=== PATIENT | female | born 1995 | race Caucasian/White ===

== ENCOUNTER 2016-12-07 16:20 | Emergency (ER) | payer MEDICAID ==
--- NOTE | 2016-12-07 16:37 | ER Document Report ---
ED Medical Screen (RME) - General Stated Complaint: LOWER ABDOMINAL PAIN Notes: Lower abdominal pain states that she took a test in late August which was positive is not had any follow-up I greeted and performed a rapid initial assessment of this patient. Comprehensive ED assessment and evaluation of the patient, analysis of test results and completion of the medical decision making process will be conducted by additional ED providers. TRAVEL OUTSIDE OF THE [place] IN LAST 30 DAYS: No - Related Data Allergies/Adverse Reactions: quetiapine fumarate [From Seroquel] Allergy (Intermediate, Verified 04/23/16 23: 11) Nausea STRAWBERRIES Allergy (Mild, Uncoded 04/23/16 23:11) Rash Past Medical History Musculoskeltal Medical History: Reports Hx Arthritis Psychiatric Medical History: Reports: Hx Bipolar Disorder, Hx Depression - Immunizations Immunizations up to date: Yes Hx Diphtheria, Pertussis, Tetanus Vaccination: Yes
--- NOTE | 2016-12-07 17:44 | ER Document Report ---
HPI - HPI Patient complains to provider of: abdominal cramping Pain Level: 3 Context: Patient is a 21-year-old female presents emergency Department complaining of new onset lower abdominal cramping and pain that started 2 days ago. Patient states that this pain was sudden onset has been intermittent. She states that she'll have episodes last less than 30 seconds of a cramping abdominal pain and at its worse as a sharp stabbing pain that takes her breath away. Located in the suprapubic area She also admits to vomiting today that is more frequent than for her . She denies any hematochezia or hematemesis. She denies any vaginal bleeding, spotting, discharge with odor, pyuria, urinary retention, urgency. She states that she has not followed up with an FARM EQUIPMENT SERVICE TECHNICIAN since she is not allowed to go to [facility] in [facility] and she has not been to the health department. Past medical history significant for bipolar, depression, anxiety Past surgical history denies Social history smokes half a pack to a pack a day. Approximately 3-5 pack years. Denies any alcohol or drug use. - REPRODUCTIVE Reproductive: DENIES: : - DERM Skin Color: Normal Past Medical History - General Information source: Patient - Social History Smoking Status: Current Every Day Smoker Chew tobacco use (# tins/day): No Frequency of alcohol use: None Drug Abuse: None Family History: Reviewed & Not Pertinent Patient has suicidal ideation: No Patient has homicidal ideation: No Renal/ Medical History: Denies: Hx Peritoneal Dialysis Musculoskeltal Medical History: Reports Hx Arthritis Psychiatric Medical History: Reports: Hx Bipolar Disorder, Hx Depression - Immunizations Immunizations up to date: Yes Hx Diphtheria, Pertussis, Tetanus Vaccination: Yes Vertical Provider Document - CONSTITUTIONAL Agree With Documented VS: Yes Exam Limitations: No Limitations General Appearance: WD/WN, No Apparent Distress - Tearful - INFECTION CONTROL TRAVEL OUTSIDE OF THE [place] IN LAST 30 DAYS: No - RESPIRATORY Respiratory: Breath Sounds Normal, No Respiratory Distress - CARDIOVASCULAR Cardiovascular: Regular Rate, Regular Rhythm, No Murmur Pulses: Normal: Radial, Dorsalis pedis - GI/ABDOMEN Gastrointestinal: Abdomen Soft, Abdomen Non-Tender, No Organomegaly, Normal Bowel Sounds. negative: Abdominal Guarding, Abdominal Rebound - BACK Back: Normal Inspection. negative: CVA Tenderness-Right, CVA Tenderness-Left - MUSCULOSKELETAL/EXTREMETIES Musculoskeletal/Extremeties: MAEW, FROM, Non-Tender, No Edema - NEURO Level of Consciousness: Awake, Alert, Appropriate Motor/Sensory: No Motor Deficit, No Sensory Deficit - DERM Integumentary: Warm, Dry, No Rash Course - Re-evaluation Re-evalutation: 12/07/16 17:44 Baseline labs and studies transvaginal ultrasound be performed. 12/07/16 20:00 No evidence of any pelvic abnormality, Living IUP at 16 wks 3 days with HR of 158bpm. UA reveals UTI, d/c with ABX and f/u with health dept for care - Laboratory Result Diagrams: 12/07/16 17:35 12/07/16 17:35 - Diagnostic Test Radiology reviewed: Reports reviewed Discharge - Discharge Clinical Impression: UTI (urinary tract infection) Qualifiers: Urinary tract infection type: acute cystitis Hematuria presence: without hematuria Qualified Code(s): N30.00 - Acute cystitis without hematuria Condition: Good Disposition: HOME, SELF-CARE Instructions: Urinary Tract Infection ([facility]), Nitrofurantoin ([facility]) Additional Instructions: Please be sure to follow up with Health Department for care Prescriptions: Nitrofurantoin/Nitrofuran Mac [Macrobid 100 mg Capsule] 1 tab PO BID #20 capsule
[2016-12-07 18:11] LABS: ABSOLUTE EOSINOPHILS # (AUTO) 0.4 10^3/uL (0.0-0.6); ABSOLUTE LYMPHOCYTES (AUTO) 2.3 10^3/uL (0.5-4.7); ABSOLUTE MONOCYTES (AUTO) 0.7 10^3/uL (0.1-1.4); ABSOLUTE NEUT (AUTO) 8.4 10^3/uL (1.7-8.2); BASOPHILS % (AUTO) 0.3 % (0-2); EOSINOPHILS % (AUTO) 3.2 % (0-6); HEMOGLOBIN 11.3 g/dL (12.0-15.5); HGB HCT DIFFERENCE -0.1; LYMPHOCYTES % (AUTO) 19.3 % (13-45); MEAN CORPUSCULAR HEMOGLOBIN 28.8 pg (27.0-33.4); MEAN CORPUSCULAR HGB CONC 33.3 g/dL (32.0-36.0); MEAN CORPUSCULAR VOLUME 87 fl (80-97); MONOCYTES % (AUTO) 5.6 % (3-13); RED BLOOD COUNT 3.92 10^6/uL (3.72-5.28); RED CELL DISTRIBUTION WIDTH 16.1 % (11.5-14.0); SEGMENTED NEUTROPHILS % (AUTO) 71.6 % (42-78); WHITE BLOOD COUNT 11.7 10^3/uL (4.0-10.5)
[2016-12-07 18:12] LABS: AMORPHOUS SEDIMENT,URINE TRACE /HPF; APPEARANCE,URINE TURBID; BILIRUBIN,URINE NEGATIVE (NEGATIVE); GLUCOSE, URINE NEGATIVE (NEGATIVE); KETONES,URINE 20 mg/dL (NEGATIVE); LEUKOCYTE ESTERASE,URINE TRACE (NEGATIVE); NITRITE,URINE NEGATIVE (NEGATIVE); PROTEIN,URINE NEGATIVE (NEGATIVE); URINE SPECIFIC GRAVITY 1.023
[2016-12-07 18:24] LABS: URINE BARBITURATES SCREEN NEGATIVE; URINE METHADONE SCREEN NEGATIVE; URINE PHENCYCLIDINE SCREEN NEGATIVE
[2016-12-07 18:29] LABS: BLOOD UREA NITROGEN 11 mg/dL (7-20); CALCIUM 8.8 mg/dL (8.4-10.2); CARBON DIOXIDE 24 mmol/L (22-30); CHLORIDE 106 mmol/L (98-107); CREATININE RESULT 0.61 mg/dL (0.52-1.25); GLUCOSE 78 mg/dL (75-110); POTASSIUM 3.6 mmol/L (3.6-5.0); SODIUM 138.9 mmol/L (137-145)
[2016-12-07 18:30] LABS: ALANINE AMINOTRANSFERASE 10 U/L (9-52); ALBUMIN 3.4 g/dL (3.5-5.0); ALKALINE PHOSPHATASE 56 U/L (38-126); ANION GAP 9 (5-19); ASPARTATE AMINO TRANSFERASE 12 U/L (14-36); BILIRUBIN,TOTAL 0.2 mg/dL (0.2-1.3)
[2016-12-07] MEDS ORDERED: NITROFURANTOIN MONOHYD/M-CRYST 100 MG CAPSULE PO ONE (19:57)
== END 2016-12-07 19:55 | disposition home or self-care (01) ==
LOC: ER 16:20
DX: O23.12 Infections of bladder in pregnancy, second trimester (principal); N30.00 Acute cystitis without hematuria; O99.332 Smoking (tobacco) complicating pregnancy, second trimester; F17.210 Nicotine dependence, cigarettes, uncomplicated; Z3A.16 16 weeks gestation of pregnancy
CPT/HCPCS: 36415; 76805; 80053; 80307; 81001; 83690; 84702; 85025; 87086; 93976; 99284

== ENCOUNTER 2017-02-24 09:17 | Outpatient (CLI) | payer MEDICAID ==
[2017-02-24 10:06] LABS: AMORPHOUS SEDIMENT,URINE TRACE /HPF; APPEARANCE,URINE CLOUDY; BILIRUBIN,URINE NEGATIVE (NEGATIVE); GLUCOSE, URINE NEGATIVE (NEGATIVE); KETONES,URINE 80 mg/dL (NEGATIVE); LEUKOCYTE ESTERASE,URINE TRACE (NEGATIVE); NITRITE,URINE NEGATIVE (NEGATIVE); PROTEIN,URINE NEGATIVE (NEGATIVE); URINE SPECIFIC GRAVITY 1.016; UROBILINOGEN,URINE NEGATIVE mg/dL (<2.0)
[2017-02-24 10:15] LABS: URINE BARBITURATES SCREEN NEGATIVE; URINE METHADONE SCREEN NEGATIVE; URINE OPIATES LOW NEGATIVE; URINE PHENCYCLIDINE SCREEN NEGATIVE
[2017-02-24 11:47] LABS: ABSOLUTE EOSINOPHILS # (AUTO) 0.1 10^3/uL (0.0-0.6); ABSOLUTE LYMPHOCYTES (AUTO) 1.2 10^3/uL (0.5-4.7); ABSOLUTE MONOCYTES (AUTO) 0.6 10^3/uL (0.1-1.4); ABSOLUTE NEUT (AUTO) 4.9 10^3/uL (1.7-8.2); BASOPHILS % (AUTO) 0.5 % (0-2); EOSINOPHILS % (AUTO) 1.5 % (0-6); HEMATOCRIT 30.1 % (36.0-47.0); HEMOGLOBIN 10.3 g/dL (12.0-15.5); HGB HCT DIFFERENCE 0.8; LYMPHOCYTES % (AUTO) 17.2 % (13-45); MEAN CORPUSCULAR HEMOGLOBIN 30.8 pg (27.0-33.4); MEAN CORPUSCULAR HGB CONC 34.1 g/dL (32.0-36.0); MEAN CORPUSCULAR VOLUME 90 fl (80-97); RED BLOOD COUNT 3.33 10^6/uL (3.72-5.28); RED CELL DISTRIBUTION WIDTH 14.4 % (11.5-14.0); SEGMENTED NEUTROPHILS % (AUTO) 71.8 % (42-78); WHITE BLOOD COUNT 6.8 10^3/uL (4.0-10.5)
[2017-02-24 12:04] LABS: ALANINE AMINOTRANSFERASE 28 U/L (9-52); ALBUMIN 3.6 g/dL (3.5-5.0); ALKALINE PHOSPHATASE 105 U/L (38-126); ANION GAP 9 (5-19); ASPARTATE AMINO TRANSFERASE 21 U/L (14-36); BILIRUBIN,DIRECT 0.1 mg/dL (0.0-0.4); BILIRUBIN,TOTAL 0.3 mg/dL (0.2-1.3); BLOOD UREA NITROGEN 8 mg/dL (7-20); CALCIUM 9.2 mg/dL (8.4-10.2); CARBON DIOXIDE 20 mmol/L (22-30); CHLORIDE 107 mmol/L (98-107); GLUCOSE 69 mg/dL (75-110); POTASSIUM 4.2 mmol/L (3.6-5.0); SODIUM 135.6 mmol/L (137-145); TOTAL PROTEIN 5.9 g/dL (6.3-8.2)
[2017-02-24 12:05] LABS: AMYLASE < 30 U/L (30-110)
== END 2017-02-24 13:18 | disposition home or self-care (01) ==
LOC: LC 09:17
PROVIDERS: ATTEND Student in an Organized Health Care Education/Training Program
PROC: 4A1HXCZ Monitoring of Products of Conception, Cardiac Rate, External Approach (ICD-10-PCS; principal; 2017-02-24)
DX: O26.893 Other specified pregnancy related conditions, third trimester (principal); R10.2 Pelvic and perineal pain; Z3A.28 28 weeks gestation of pregnancy
CPT/HCPCS: 36415; 76815; 80053; 80307; 81001; 82150; 82731; 85025; 87086

== ENCOUNTER 2017-05-04 01:17 | Outpatient (CLI) | payer MEDICAID ==
[2017-05-04 02:23] LABS: APPEARANCE,URINE SLIGHTLY-CLOUDY; BILIRUBIN,URINE NEGATIVE (NEGATIVE); GLUCOSE, URINE NEGATIVE (NEGATIVE); KETONES,URINE TRACE mg/dL (NEGATIVE); LEUKOCYTE ESTERASE,URINE TRACE (NEGATIVE); NITRITE,URINE NEGATIVE (NEGATIVE); PROTEIN,URINE NEGATIVE (NEGATIVE); UROBILINOGEN,URINE NEGATIVE mg/dL (<2.0)
[2017-05-04 02:55] LABS: URINE BARBITURATES SCREEN NEGATIVE; URINE METHADONE SCREEN NEGATIVE; URINE OPIATES LOW NEGATIVE; URINE PHENCYCLIDINE SCREEN NEGATIVE
[2017-05-04 03:33] LABS: ABSOLUTE BASOPHILS # (AUTO) 0.1 10^3/uL (0.0-0.2); ABSOLUTE EOSINOPHILS # (AUTO) 0.6 10^3/uL (0.0-0.6); ABSOLUTE LYMPHOCYTES (AUTO) 4.4 10^3/uL (0.5-4.7); ABSOLUTE MONOCYTES (AUTO) 1.4 10^3/uL (0.1-1.4); ABSOLUTE NEUT (AUTO) 11.8 10^3/uL (1.7-8.2); BASOPHILS % (AUTO) 0.5 % (0-2); HEMATOCRIT 29.4 % (36.0-47.0); HEMOGLOBIN 9.8 g/dL (12.0-15.5); LYMPHOCYTES % (AUTO) 24.2 % (13-45); MEAN CORPUSCULAR HEMOGLOBIN 29.4 pg (27.0-33.4); MEAN CORPUSCULAR HGB CONC 33.4 g/dL (32.0-36.0); MEAN CORPUSCULAR VOLUME 88 fl (80-97); MONOCYTES % (AUTO) 7.7 % (3-13); RED BLOOD COUNT 3.34 10^6/uL (3.72-5.28); RED CELL DISTRIBUTION WIDTH 14.3 % (11.5-14.0); SEGMENTED NEUTROPHILS % (AUTO) 64.6 % (42-78); WHITE BLOOD COUNT 18.3 10^3/uL (4.0-10.5)
[2017-05-04] MEDS ORDERED: HYDROXYZINE PAMOATE 50 MG CAPSULE PO ONE (04:46)
[2017-05-04] MEDS ORDERED: HYDROXYZINE PAMOATE 50 MG CAPSULE ONE (04:51)
--- NOTE | 2017-05-04 05:04 | Non Stress Test Report ---
Non Stress Test Datetime Report Generated by CPN: 05/04/2017 05:04 DEMOGRAPHIC EGA NST: 37.4 INDICATION Indication for Study: Other VITAL SIGNS Temperature - NST: 98.0 Pulse - NST: 86 RESP - NST: 14 NBPSYS NST: 102 NBPDIA NST: 53 MONITORING Monitor Explained: Monitor Explained; Test Explained; Patient Verbalized Understanding Time on Monitor: 05/04/2017 01:33 Time off Monitor: 05/04/2017 04:55 NST Duration: 202 NST INTERVENTIONS NST Interventions: PO Hydration Physician Notified NST: Dr Correia BABY A: [id number] BABY A Movement : Present Contraction Frequency : 2.5-5.5 FHR Baseline : 135 Accelerations : 15X15 Decelerations : None Variability : Moderate 6-25bpm NST Review: Meets Criteria for Reactive NST NST Review and Verified By : NARENDRA MASTERS Results: Reactive NST REPORT Report Trigger: Send Report
[2017-05-04 07:01] LABS: ADD HIVPANEL? NO; HIV (1 AND 2) ANTIBODY NEGATIVE (NEGATIVE)
[2017-05-05 16:39] LABS: HEPATITIS C VIRUS AB <0.1 s/co ratio (0.0-0.9)
== END 2017-05-04 05:06 | disposition home or self-care (01) ==
LOC: LC 01:17
PROVIDERS: ATTEND Obstetrics & Gynecology
PROC: 4A1HXCZ Monitoring of Products of Conception, Cardiac Rate, External Approach (ICD-10-PCS; principal; 2017-05-04)
DX: O47.1 False labor at or after 37 completed weeks of gestation (principal); Z3A.37 37 weeks gestation of pregnancy
CPT/HCPCS: 59025; 86900; 86901; 36415; 86850; 85025; 81005; 86762; 86592; 87340; 86701; 80307; 86803; 86804; J3490

== ENCOUNTER 2017-05-05 23:59 | Outpatient (CLI) | payer MEDICAID ==
[2017-05-06] MEDS ORDERED: PENICILLIN G-K 5 MILLION UNIT VIAL IV ONE (00:36)
[2017-05-06 00:38] LABS: APPEARANCE,URINE CLOUDY; BILIRUBIN,URINE NEGATIVE (NEGATIVE); GLUCOSE, URINE NEGATIVE (NEGATIVE); KETONES,URINE TRACE mg/dL (NEGATIVE); LEUKOCYTE ESTERASE,URINE TRACE (NEGATIVE); NITRITE,URINE NEGATIVE (NEGATIVE); PROTEIN,URINE 30 mg/dL (NEGATIVE); URINE SPECIFIC GRAVITY 1.023; UROBILINOGEN,URINE NEGATIVE mg/dL (<2.0)
[2017-05-06] MEDS ORDERED: RINGERS SOLUTION,LACTATED 1,000 ML IV PRN (00:38)
[2017-05-06] MEDS ORDERED: PENICILLIN G-K 5 MILLION UNIT VIAL ONE (00:42)
[2017-05-06 00:58] LABS: URINE BARBITURATES SCREEN NEGATIVE; URINE METHADONE SCREEN NEGATIVE; URINE OPIATES LOW NEGATIVE; URINE PHENCYCLIDINE SCREEN NEGATIVE
[2017-05-06 02:58] LABS: CHLAM PCR NOT DETECTED (NOT DETECT)
--- NOTE | 2017-05-15 01:12 | Non Stress Test Report ---
Non Stress Test Datetime Report Generated by CPN: 05/15/2017 01:12 DEMOGRAPHIC Test Number: 1 EGA NST: 37.6 INDICATION Indication for Study: Ordered by Provider MONITORING Monitor Explained: Monitor Explained; Test Explained; Patient Verbalized Understanding Time on Monitor: 05/06/2017 00:15 Time off Monitor: 05/06/2017 05:18 NST Duration: 303 NST INTERVENTIONS NST Interventions: IV Fluids Physician Notified NST: Gonzalez BABY A: [id number] BABY A Movement : Present Contraction Frequency : 3-5 FHR Baseline : 130 Accelerations : 15X15 Decelerations : None Variability : Moderate 6-25bpm NST Review: Meets Criteria for Reactive NST NST Review and Verified By : Adriane Mckeon RN NSDerick Results: Reactive NST REPORT Report Trigger: Send Report
== END 2017-05-06 05:30 | disposition home or self-care (01) ==
LOC: LC 23:59
PROVIDERS: ATTEND Student in an Organized Health Care Education/Training Program
PROC: 4A1HXCZ Monitoring of Products of Conception, Cardiac Rate, External Approach (ICD-10-PCS; principal; 2017-05-05)
DX: O47.1 False labor at or after 37 completed weeks of gestation (principal); Z3A.37 37 weeks gestation of pregnancy
CPT/HCPCS: 59025; 81005; 80307; 87491; 87591; J2540

== ENCOUNTER 2017-05-15 01:12 | Inpatient (IN) | payer MEDICAID ==
[2017-05-15] MEDS ORDERED: RINGERS SOLUTION,LACTATED 1,000 ML IV PRN (01:17)
[2017-05-15] MEDS ORDERED: OXYTOCIN/NORMAL SALINE 20 UNIT/1,000 ML RTUINJ ONE ×2 (01:21→02:17)
[2017-05-15] MEDS ORDERED: LIDOCAINE 1% INJ-PF (10 MG/ML) 30 ML SDV ONE (01:21)
[2017-05-15] MEDS ORDERED: MISOPROSTOL 0.2 MG TABLET ONE (01:21)
[2017-05-15] MEDS ORDERED: PENICILLIN G-K 5 MILLION UNIT VIAL ONE (01:22)
[2017-05-15] MEDS ORDERED: PENICILLIN G-K 5 MILLION UNIT VIAL IV PRN (01:23)
[2017-05-15] MEDS ORDERED: PENICILLIN G POTASSIUM 5,000,000 UNIT in DEXTROSE 5%-WATER 100 ML IV ONE (01:30)
[2017-05-15] MEDS ORDERED: BENZOCAINE/MENTHOL AEROSOL SPRAY 56 ML TOP PRN (01:44)
[2017-05-15] MEDS ORDERED: DIBUCAINE 1% OINTMENT 28 GM TP PRN (01:44)
[2017-05-15] MEDS ORDERED: DIPH/PERTUSS(ACELL)/TETANUS VAC/PF 0.5 ML SYR (>=10YO) IM PRN (01:44)
[2017-05-15] MEDS ORDERED: ACETAMINOPHEN WITH CODEINE #3 TABLET PO PRN (01:44)
[2017-05-15] MEDS ORDERED: OXYTOCIN/NORMAL SALINE 1,000 ML IV PRN (01:44)
[2017-05-15] MEDS ORDERED: ZOLPIDEM TARTRATE 5 MG TABLET PO PRN (01:44)
[2017-05-15] MEDS ORDERED: MEASLES,MUMPS&RUBELLA VACC/PF 0.5 ML VIAL SUBCUT PRN (01:44)
[2017-05-15 02:04] LABS: ABSOLUTE BASOPHILS # (AUTO) 0.1 10^3/uL (0.0-0.2); ABSOLUTE EOSINOPHILS # (AUTO) 0.4 10^3/uL (0.0-0.6); ABSOLUTE LYMPHOCYTES (AUTO) 4.6 10^3/uL (0.5-4.7); ABSOLUTE MONOCYTES (AUTO) 1.2 10^3/uL (0.1-1.4); ABSOLUTE NEUT (AUTO) 10.1 10^3/uL (1.7-8.2); BASOPHILS % (AUTO) 0.3 % (0-2); EOSINOPHILS % (AUTO) 2.6 % (0-6); HEMATOCRIT 30.9 % (36.0-47.0); HEMOGLOBIN 10.2 g/dL (12.0-15.5); HGB HCT DIFFERENCE -0.3; MEAN CORPUSCULAR HEMOGLOBIN 28.9 pg (27.0-33.4); MEAN CORPUSCULAR VOLUME 88 fl (80-97); MONOCYTES % (AUTO) 7.4 % (3-13); RED BLOOD COUNT 3.53 10^6/uL (3.72-5.28); RED CELL DISTRIBUTION WIDTH 14.2 % (11.5-14.0); SEGMENTED NEUTROPHILS % (AUTO) 61.7 % (42-78); WHITE BLOOD COUNT 16.3 10^3/uL (4.0-10.5)
[2017-05-15] MEDS ORDERED: IBUPROFEN 800 MG TABLET ONE (02:06)
[2017-05-15] MEDS ORDERED: ACETAMINOPHEN WITH CODEINE #3 TABLET ONE (02:06)
--- NOTE | 2017-05-15 03:28 | Delivery Summary ---
Del Sum A-C Datetime Report Generated by CPN: 05/15/2017 03:27 DELIVERY PERSONNEL DELIVERY PERSONNEL: [phone] Delivery Doctor:: Nia Miller MD Labor and Delivery Nurse:: Rosemary Scott RNsteam train driver Nurse:: Shaye Kan RN Hairspring Studder/ENGRAVING SUPERVISOR: Sobia Chávez, ST MATERNAL INFORMATION Delivery Anesthesia: None Medications After Delivery: Pitocin Drip 20 Units/1000ml NSS Estimated Blood Loss (ml): 150 Maternal Complications: Precipitous Labor (<3hrs) LABOR SUMMARY EDC: 05/21/2017 00:00 No. Babies in Womb: 1 Attempted: No Labor Anesthesia: None LABOR INFORMATION Reason for Induction: Not Applicable Onset of Labor: 05/15/2017 00:30 Complete Dilatation: 05/15/2017 01:26 Oxytocin: N/A Group B Beta Strep: Unknown Antibiotics # of Doses: 1 Antibiotics Time of Last Dose: penicillin Name of Antibiotic Given: 0124 MEMBRANES Rupture of Membranes: 05/15/2017 00:30 Length of Rupture (hr): 1.00 Amniotic Fluid Color: Clear Amniotic Fluid Amount: Large STAGES OF LABOR Stage 1 hr: 0 Stage 1 min: 56 Stage 2 hr: 0 Stage 2 min: 4 Stage 3 hr: 0 Stage 3 min: 3 Total Time in Labor hr: 1 Total Time in Labor min: 3 VAGINAL DELIVERY Episiotomy: None Laceration Extension: N/A Laceration Type: None Laceration Repair: Not Applicable Sponge Count Correct: N/A Sharps Count Correct: Yes CSECTION DELIVERY Primary Indication: N/A Secondary Indication: N/A CSection Incidence: N/A Labor: N/A Elective: N/A CSection Incision: N/A BABY A INFORMATION Infant Delivery Date/Time: 05/15/2017 01:30 Method of Delivery: Vaginal Born in Route : No : N/A Forceps: N/A Vacuum Extraction: N/A Shoulder Dystocia : No PRESENTATION/POSITION BABY A Presentation: Cephalic Cephalic Presentation: Vertex Vertex Position: Occipital Anterior Breech Presentation: N/A PLACENTA INFORMATION BABY A Placenta Delivery Time : 05/15/2017 01:33 Placenta Method of Delivery: Spontaneous Placenta Status: Delivered SCORES BABY A Heart Rate 1 min: >100 bpm Resp Effort 1 min: Good Cry Reflex Irritability 1 min: Cough or Sneeze or Pulls Away Muscle Tone 1 min: Active Motion Color 1 min: Body [place], Extremities Blue Resuscitation Effort 1 min: N/A SCORE 1 MIN: 9 Heart Rate 5 min: >100 bpm Resp Effort 5 min: Good Cry Reflex Irritability 5 min: Cough or Sneeze or Pulls Away Muscle Tone 5 min: Active Motion Color 5 min: Body [place], Extremities Blue Resuscitation Effort 5 min: N/A SCORE 5 MIN: 9 INFANT INFORMATION BABY A Gestational Age at Delivery: 39.1 Gestational Status: Full Term- 39- 40.6 Weeks Outcome : Liveborn Infant Condition : Stable Sex: Male IDENTIFICATION BABY A Verification Date/Time: 05/15/2017 01:37 ID Band Number: [id number] Mother's Name Verified: Yes Infant RN Verifying : R Elmer, RNC Additional Verifying Personnel: O [facility], RN WEIGHT/LENGTH BABY A Birthweight (gm): 3280 Infant Weight (lb): 7 Weight (oz): 4 Length (in): 20.00 Infant Length (cm): 50.80 CORD INFORMATION BABY A No. Cord Vessels: 3 Nuchal Cord : N/A Cord Blood Taken: Yes-For Eval (Mom's Blood Type - or O+) Suction: Mouth; Nose ASSESSMENT BABY A Infant Complications: None Physical Findings at Delivery: Within Normal Limits Infant Respirations: Appears Normal Skin to Skin: Yes Skin to Skin Time (min): 15 Rn Lab/ALS Called : No Care By: K Tyler RN Transferred To: Remains with Mother BABY B INFORMATION : N/A SIGNATURES Signature: with User ID: [email or web address]
--- NOTE | 2017-05-15 03:41 | Admission Physical ---
Datetime Report Generated by CPN: 05/15/2017 03:41 CURRENT ADMISSION Chief Complaint: Uterine Contractions; Suspected Ruptured Membranes Indication for Induction: Not Applicable Admit Plan: Admit to Unit; Initiate Labor Protocol ALLERGIES Medication Allergies: Yes Medication Allergies: quetiapine fumarate/MO/Nausea (05/15/2017) Medication Allergies: quetiapine fumarate/MO/Nausea (12/07/2016) Medication Allergies: quetiapine fumarate/MO/Nausea (04/23/2016) Latex: No Latex Allergies Food Allergies: STRAWBERRIES Environmental Allergies: NONE OBSTETRICAL HISTORY EDC: 05/21/2017 00:00 : 4 Para: 3 Term: 3 : 0 SAB: 0 IAB: 0 Ectopic: 0 Livin Cesareans: 0 VBACs: 0 Multiple Births: 0 Gestational Diabetes: No Rh Sensitization: No Incompetent Cervix: No BRIDGETTE: No Infertility: No ART Treatment: No Uterine Anomaly: No IUGR: No Hx Previous C/S: No Macrosomia: No Hx Loss/Stillborn: No PIH: No Hx : No Placenta Previa/Abruption: No Depression/PP Depression: No PTL/PROM: No Post Hemorrhage: No Current Procedures: Ultrasound Obstetrical History Comments: 2012 baby boy 37 weeks 2014 baby girl 37 weeks 2015 baby girl 38 weeks 2016 current SEE RECORDS Alcohol: No Marijuana : No Cocaine: No Other Illicit Drugs: No Cigarettes: Current Everyday Smoker. [id number] Cigarette Frequency: 5 - 10 per day Advised to Stop: Yes MEDICAL HISTORY Diabetes: No Blood Transfusion: No Pulmonary Disease (Asthma, TB): No Breast Disease: No Hypertension: No Industrial Controller Surgery: No Heart Disease: No Hosp/Surgery: No Autoimmune Disorder: No Anesthetic Complications: No Kidney Disease: No Abnormal Pap Smear: No Neuro/Epilepsy: No Psychiatric Disorders: Yes Other Medical Diseases: No Hepatitis/Liver Disease: No Significant Family History: No Varicosities/Phlebitis: No Trauma/Violence : No Thyroid Dysfunction: No Medical History Comments: bipolar disorder, depression, kids currently in [facility] care per records, history of IVC in April 2016 INFECTIOUS HISTORY Gonorrhea: No Genital Herpes: No Chlamydia: Yes Tuberculosis: No Syphilis: No Hepatitis: No HIV/AIDS Exposure: No Rash or Viral Illness: No HPV: No Infectious History Comments: Chlamydia 2011 PHYSICAL EXAM General: Normal HEENT: Normal Neurologic: Normal Thyroid: Normal Heart: Normal Lungs: Normal Breast: Normal Back: Normal Abdomen: Normal Genitourinary Exam: Normal Extremities: Normal DTRs: Normal Pelvic Type: Adequate Vital Signs: Reviewed VAGINAL EXAM Dilatation: 7 Effacement: 100 Station: 0 MEMBRANES Pooling: Positive Membranes: Ruptured Amniotic Fluid Color: Clear FETUS A EGA: 39.1 Monitoring: External US FHR- Baseline: 140 Variability: Moderate 6-25bpm Accelerations: 10X10 Decelerations: None Estimated Weight (gm): 3300 Presentation: Vertex PLANS FOR LABOR AND DELIVERY Labor and Delivery: None Pain Management: Epidural Feeding Preference: Both Benefit of Breast Feed Discussed: Yes Circumcision: Yes INFORMED CONSENT Signature: with User ID: [email or web address]
[2017-05-15] MEDS ORDERED: PENICILLIN G POTASSIUM 2,500,000 UNIT in DEXTROSE 5%-WATER 50 ML IV SCH (05:30)
[2017-05-15] MEDS: IBUPROFEN 800 MG TABLET PO SCH ×3 (06:02→21:27)
[2017-05-15 09:12] LABS: APPEARANCE,URINE SLIGHTLY-CLOUDY; BILIRUBIN,URINE NEGATIVE (NEGATIVE); GLUCOSE, URINE NEGATIVE (NEGATIVE); KETONES,URINE NEGATIVE (NEGATIVE); LEUKOCYTE ESTERASE,URINE SMALL (NEGATIVE); NITRITE,URINE NEGATIVE (NEGATIVE); PROTEIN,URINE 100 mg/dL (NEGATIVE); URINE SPECIFIC GRAVITY 1.008; UROBILINOGEN,URINE NEGATIVE mg/dL (<2.0)
--- NOTE | 2017-05-15 09:28 | PDOC PROGRESS REPORT ---
Subjective-OB Subjective: Post Delivery Day: 22 year old. Denies any needs at this time. Denies suicidal ideation. States is under psychiatric care at [facility]-on no meds. Denies use of anything except cigarettes, no marijuana. Physical Exam (OB) Vital Signs: Temp Pulse Resp BP Pulse Ox 97.9 F 74 16 107/67 100 05/15/17 07:41 05/15/17 07:41 05/15/17 07:41 05/15/17 07:41 05/15/17 07:41 Intake & Output 05/14/17 05/15/17 05/16/17 06:59 06:59 06:59 Weight 57.85 kg - Lochia Lochia Amount: Small 10-25 ml Lochia Color: Rubra/Red - Abdomen Description: Tender, Soft Hernia Present: No Bowel Sounds: Normoactive Flatus Presence: Present Stool: No Fundal Description: Firm, Midline Fundal Height: u/u - u/2 Objective-Diagnostic Laboratory: 05/15/17 01:49 05/15/17 05/15/17 05/15/17 01:49 01:49 08:58 WBC 16.3 H RBC 3.53 L Hgb 10.2 L Hct 30.9 L MCV 88 MCH 28.9 MCHC 33.0 RDW 14.2 H Plt Count 339 Seg Neutrophils % 61.7 Lymphocytes % 28.0 Monocytes % 7.4 Eosinophils % 2.6 Basophils % 0.3 Absolute Neutrophils 10.1 H Absolute Lymphocytes 4.6 Absolute Monocytes 1.2 Absolute Eosinophils 0.4 Absolute Basophils 0.1 Urine Color RED Urine Appearance SLIGHTLY-CLOUDY Urine pH 6.0 Ur Specific [place] 1.008 Urine Protein 100 H Urine Glucose (UA) NEGATIVE Urine Ketones NEGATIVE Urine Blood LARGE H Urine Nitrite NEGATIVE Ur Leukocyte Esterase SMALL H Blood Type O POSITIVE Antibody Screen NEGATIVE
[2017-05-15 09:35] LABS: URINE BARBITURATES SCREEN NEGATIVE; URINE METHADONE SCREEN NEGATIVE; URINE PHENCYCLIDINE SCREEN NEGATIVE
[2017-05-15] MEDS: SENNOSIDES/DOCUSATE 8.6-50 MG 1 EACH TABLET PO SCH (09:38)
[2017-05-15] MEDS: ACETAMINOPHEN WITH CODEINE #3 TABLET PO PRN ×2 (09:38→20:47)
[2017-05-15] MEDS: FERROUS SULFATE 325 MG TABLET PO SCH ×2 (09:39→17:51)
[2017-05-15] MEDS: PRENATAL VITAMIN W-O CA NO5/FE FUMARATE/FA CAPSULE PO SCH (09:39)
[2017-05-15] MEDS: DOCUSATE SODIUM 100 MG CAPSULE PO SCH ×2 (09:39→17:52)
[2017-05-15 10:03] LABS: URINE OPIATES LOW UNCONFIRMED POSITIVE
[2017-05-16] MEDS: IBUPROFEN 800 MG TABLET PO SCH ×3 (06:15→21:32)
[2017-05-16 07:20] LABS: HEMATOCRIT 29.7 % (36.0-47.0); HEMOGLOBIN 9.8 g/dL (12.0-15.5); HGB HCT DIFFERENCE -0.3; MEAN CORPUSCULAR VOLUME 88 fl (80-97); RED BLOOD COUNT 3.37 10^6/uL (3.72-5.28); RED CELL DISTRIBUTION WIDTH 14.6 % (11.5-14.0); WHITE BLOOD COUNT 14.9 10^3/uL (4.0-10.5)
[2017-05-16] MEDS: SENNOSIDES/DOCUSATE 8.6-50 MG 1 EACH TABLET PO SCH (10:12)
[2017-05-16] MEDS: PRENATAL VITAMIN W-O CA NO5/FE FUMARATE/FA CAPSULE PO SCH (10:12)
[2017-05-16] MEDS: DOCUSATE SODIUM 100 MG CAPSULE PO SCH ×2 (10:12→17:52)
[2017-05-16] MEDS: FERROUS SULFATE 325 MG TABLET PO SCH ×2 (10:12→17:52)
[2017-05-16] MEDS: ACETAMINOPHEN WITH CODEINE #3 TABLET PO PRN (10:22)
--- NOTE | 2017-05-16 10:22 | PDOC PROGRESS REPORT ---
Subjective-OB Subjective: Post Delivery Day:1 22 year old. Denies any needs at this time, states lochia is stable, pain is well controlled, voiding without difficulty Physical Exam (OB) Vital Signs: Temp Pulse Resp BP Pulse Ox 97.6 F 68 16 104/59 L 100 05/16/17 08:56 05/16/17 08:56 05/16/17 08:56 05/16/17 08:56 05/16/17 08:56 Intake & Output 05/15/17 05/16/17 05/17/17 06:59 06:59 06:59 Weight 57.85 kg - Lochia Lochia Amount: Scant < 10 ml Lochia Color: Rubra/Red - Abdomen Description: Tender, Soft Hernia Present: No Fundal Description: Firm, Midline Fundal Height: u/u - u/2 Objective-Diagnostic Laboratory: 05/16/17 07:12 05/16/17 07:12 WBC 14.9 H RBC 3.37 L Hgb 9.8 L Hct 29.7 L MCV 88 MCH 29.0 MCHC 33.0 RDW 14.6 H Plt Count 336
[2017-05-16 21:41] VITALS: BP 100/52
[2017-05-17] MEDS: ACETAMINOPHEN WITH CODEINE #3 TABLET PO PRN (02:09)
[2017-05-17] MEDS: IBUPROFEN 800 MG TABLET PO SCH (05:44)
[2017-05-17] MEDS: DOCUSATE SODIUM 100 MG CAPSULE PO SCH (09:10)
[2017-05-17] MEDS: PRENATAL VITAMIN W-O CA NO5/FE FUMARATE/FA CAPSULE PO SCH (09:10)
[2017-05-17] MEDS: FERROUS SULFATE 325 MG TABLET PO SCH (09:11)
[2017-05-17] MEDS: SENNOSIDES/DOCUSATE 8.6-50 MG 1 EACH TABLET PO SCH (09:11)
--- NOTE | 2017-05-17 09:32 | PDOC DISCHARGE SUMMARY ---
Final Diagnosis Discharge Date: 05/17/17 - Final Diagnosis (1) Bipolar 1 disorder, depressed Is this a current diagnosis for this admission?: Yes (2) Delivery normal Is this a current diagnosis for this admission?: Yes (3) Marijuana abuse Is this a current diagnosis for this admission?: Yes (4) Vaginal delivery Is this a current diagnosis for this admission?: Yes Discharge Data - Discharge Medication Home Medications: Vit/Iron Fumarate/FA [ Tablet] 1 tab PO DAILY 02/24/17 Docusate Sodium [Colace 100 mg Capsule] 100 mg PO BID #60 capsule 05/17/17 Ferrous Sulfate [Feosol 325 mg Tablet] 325 mg PO BID #60 tablet 05/17/17 Ibuprofen [Motrin 800 mg Tablet] 800 mg PO Q8 #60 tablet 05/17/17 Gestational Age: 39.1 Reason(s) for Admission: Onset of Labor Procedures: NST Intrapartum Procedure(s): Spontaneous Vaginal Delivery - [place] Data Baby 1 Female at 1 minute: 9 at 5 minutes: 9 Weight: 3280 kg Home with Mother: No - infant removed for foster care Complications: No - Diagnosis Test Laboratory: Temp Pulse Resp BP Pulse Ox 98.2 F 70 18 100/52 L 98 05/16/17 19:30 05/16/17 19:30 05/16/17 19:30 05/16/17 19:30 05/16/17 19:30 05/15/17 05/15/17 05/16/17 01:49 08:58 07:12 RBC 3.53 L 3.37 L Hgb 10.2 L 9.8 L Hct 30.9 L 29.7 L Urine Opiates Screen UNCONFIRMED POSITIVE - Discharge information/Instructions Discharge Activity: Activity As Tolerated, Pelvic Rest, No tub bath Discharge Diet: Regular Disposition: HOME, SELF-CARE Follow [facility] in: 4, Weeks - follow up with [facility] in 4 weeks NOT [facility], keep psych appt for friday with dr. oliver
== END 2017-05-17 11:30 | disposition home or self-care (01) | DRG 775 ==
LOC: LC 01:12 → LR 01:17 → 2S 03:40
PROVIDERS: ADMIT Obstetrics & Gynecology; ATTEND Obstetrics & Gynecology
PROC: 10E0XZZ Delivery of Products of Conception, External Approach (ICD-10-PCS; principal; 2017-05-15)
PROC: 4A1HXCZ Monitoring of Products of Conception, Cardiac Rate, External Approach (ICD-10-PCS; 2017-05-15)
DX: O62.3 Precipitate labor (principal); O99.344 Other mental disorders complicating childbirth; F31.9 Bipolar disorder, unspecified; O99.334 Smoking (tobacco) complicating childbirth; F17.210 Nicotine dependence, cigarettes, uncomplicated; Z37.0 Single live birth; Z3A.39 39 weeks gestation of pregnancy
CPT/HCPCS: 36415; 80307; 81005; 85025; 85027; 86592; 86850; 86900; 86901; J2540; J2590; J3490

== ENCOUNTER 2018-05-26 12:12 | Observation (INO) | payer MEDICAID ==
[2018-05-26] MEDS ORDERED: PENICILLIN G POTASSIUM 5,000,000 UNIT in DEXTROSE 5%-WATER 100 ML IV ONE (13:07)
[2018-05-26] MEDS ORDERED: MISOPROSTOL 0.2 MG TABLET ONE (13:10)
[2018-05-26] MEDS ORDERED: PENICILLIN G-K 5 MILLION UNIT VIAL ONE ×2 (13:10→18:40)
[2018-05-26] MEDS ORDERED: OXYTOCIN/NORMAL SALINE 0 UNIT/0 ML RTUINJ ONE (13:10)
[2018-05-26] MEDS ORDERED: LIDOCAINE 1% INJ-PF (10 MG/ML) 30 ML SDV ONE (13:10)
[2018-05-26 13:49] LABS: APPEARANCE,URINE CLEAR; BILIRUBIN,URINE NEGATIVE (NEGATIVE); COLOR,URINE STRAW; GLUCOSE, URINE NEGATIVE (NEGATIVE); KETONES,URINE 80 mg/dL (NEGATIVE); LEUKOCYTE ESTERASE,URINE NEGATIVE (NEGATIVE); NITRITE,URINE NEGATIVE (NEGATIVE); PROTEIN,URINE NEGATIVE (NEGATIVE); URINE SPECIFIC GRAVITY 1.006; UROBILINOGEN,URINE NEGATIVE mg/dL (<2.0)
[2018-05-26 13:57] LABS: ABSOLUTE BASOPHILS # (AUTO) 0.1 10^3/uL (0.0-0.2); ABSOLUTE EOSINOPHILS # (AUTO) 0.2 10^3/uL (0.0-0.6); ABSOLUTE LYMPHOCYTES (AUTO) 2.9 10^3/uL (0.5-4.7); ABSOLUTE NEUT (AUTO) 7.7 10^3/uL (1.7-8.2); BASOPHILS % (AUTO) 0.5 % (0-2); HEMATOCRIT 29.4 % (36.0-47.0); LYMPHOCYTES % (AUTO) 24.4 % (13-45); MEAN CORPUSCULAR HEMOGLOBIN 28.6 pg (27.0-33.4); MEAN CORPUSCULAR HGB CONC 34.1 g/dL (32.0-36.0); MEAN CORPUSCULAR VOLUME 84 fl (80-97); MONOCYTES % (AUTO) 8.7 % (3-13); PLATELET COUNT 345 10^3/uL (150-450); RED BLOOD COUNT 3.51 10^6/uL (3.72-5.28); RED CELL DISTRIBUTION WIDTH 14.7 % (11.5-14.0); SEGMENTED NEUTROPHILS % (AUTO) 64.4 % (42-78); TOTAL CELLS COUNTED % (AUTO) 100 %; WHITE BLOOD COUNT 11.9 10^3/uL (4.0-10.5)
[2018-05-26 14:08] LABS: URINE BARBITURATES SCREEN NEGATIVE; URINE BENZODIAZEPINES SCREEN NEGATIVE; URINE COCAINE SCREEN NEGATIVE; URINE METHADONE SCREEN NEGATIVE; URINE PHENCYCLIDINE SCREEN NEGATIVE
[2018-05-26 14:25] LABS: URINE MARIJUANA (THC) SCREEN UNCONFIRMED POSITIVE
--- NOTE | 2018-05-26 14:49 | Admission Physical ---
Datetime Report Generated by CPN: 05/26/2018 14:48 CURRENT ADMISSION Chief Complaint: Uterine Contractions Indication for Induction: Not Applicable Admit Impression : , Intrauterine Admit Plan: Admit to Unit; Observation/Evaluation ALLERGIES Medication Allergies: No Medication Allergies: quetiapine fumarate/MO/Nausea (02/09/2018) Latex: No Latex Allergies OBSTETRICAL HISTORY EDC: 06/20/2018 00:00 : 5 Para: 4 Livin Cesareans: 0 Gestational Diabetes: No Rh Sensitization: No Incompetent Cervix: No BRIDGETTE: No Infertility: No ART Treatment: No Uterine Anomaly: No IUGR: No Hx Previous C/S: No Macrosomia: No Hx Loss/Stillborn: No PIH: No Hx : No Placenta Previa/Abruption: No Depression/PP Depression: No PTL/PROM: No Post Hemorrhage: No SEE RECORDS Alcohol: No Marijuana : No Cocaine: No Other Illicit Drugs: No Cigarettes: Current Everyday Smoker. 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 Heart Disease: No Hosp/Surgery: Yes Autoimmune Disorder: No Anesthetic Complications: No Kidney Disease: No Abnormal Pap Smear: No Neuro/Epilepsy: No Psychiatric Disorders: No Other Medical Diseases: No Hepatitis/Liver Disease: No Significant Family History: No Varicosities/Phlebitis: No Trauma/Violence : No Thyroid Dysfunction: No INFECTIOUS HISTORY Gonorrhea: No Genital Herpes: No Chlamydia: No Tuberculosis: No Syphilis: No Hepatitis: No HIV/AIDS Exposure: No Rash or Viral Illness: No HPV: No PHYSICAL EXAM General: Normal HEENT: Normal Neurologic: Normal Thyroid: Normal Heart: Normal Lungs: Normal Breast: Normal Back: Normal Abdomen: Normal Genitourinary Exam: Normal Extremities: Normal DTRs: Normal Pelvic Type: Adequate Vital Signs: Reviewed VAGINAL EXAM Dilatation: 5 Effacement: 50 Station: -1 MEMBRANES Pooling: Negative Membranes: Intact FETUS A EGA: 36.3 Monitoring: External US FHR- Baseline: 130 Variability: Moderate 6-25bpm Accelerations: 15X15 Decelerations: None FHR Category: Category I Estimated Weight (gm): 3100 Presentation: Vertex Admit Comment: Grand multip patient with advanced dilatation. sparse care. questionable social history and DSS involvment. Contractions have become much less frequent. Due to early gestional age and no indication for early delivery will observe for now. If cervix changes and dilatation advances will augment labor. PLANS FOR LABOR AND DELIVERY Labor and Delivery: None Pain Management: Epidural Feeding Preference: Formula Benefit of Breast Feed Discussed: Yes INFORMED CONSENT Signature: with User ID: [email or web address]
[2018-05-26 14:56] LABS: RUBELLA INTERPRETATION POSITIVE
[2018-05-26] MEDS ORDERED: ONDANSETRON 4 MG TAB.RAPDIS ONE (17:45)
[2018-05-26] MEDS ORDERED: ONDANSETRON 4 MG TAB.RAPDIS PO ONE (17:46)
[2018-05-26] MEDS ORDERED: PROMETHAZINE HCL INJ 25 MG/1 ML VIAL ONE (18:40)
[2018-05-26] MEDS ORDERED: NALBUPHINE HCL INJ 10 MG/1 ML AMPULE ONE (18:40)
--- NOTE | 2018-05-26 22:03 | Non Stress Test Report ---
Non Stress Test Datetime Report Generated by CPN: 05/26/2018 22:03 DEMOGRAPHIC Test Number: 1 EGA NST: 36.3 INDICATION Indication for Study: Ordered by Provider Indication for Study (NST) Other: Dr. Paul MONITORING Monitor Explained: Monitor Explained; Test Explained; Patient Verbalized Understanding Time on Monitor: 05/26/2018 18:43 Time off Monitor: 05/26/2018 21:44 NST Duration: 181 NST INTERVENTIONS NST Interventions: IV Fluids; Meal Given; Reposition Patient BABY A: [id number] BABY A Movement : Present Contraction Frequency : 7-15 FHR Baseline : 125 Accelerations : 15X15 Decelerations : None Variability : Moderate 6-25bpm NST Review: Meets Criteria for Reactive NST NST Review and Verified By : Adriane Mckeon RNC NST Results: Reactive NST REPORT Report Trigger: Send Report
[2018-05-27 08:41] LABS: HEPATITIS C VIRUS AB <0.1 s/co ratio (0.0-0.9)
[2018-05-27 10:31] LABS: HEPATITS B SURFACE ANTIGEN Negative (Negative)
== END 2018-05-26 21:53 | disposition home or self-care (01) ==
LOC: LC 12:12 → INTOOBSV 13:39 → LR 13:39
PROVIDERS: ADMIT Obstetrics & Gynecology; ATTEND Obstetrics & Gynecology
DX: O60.03 Preterm labor without delivery, third trimester (principal); O09.43 Supervision of pregnancy with grand multiparity, third trimester; Z3A.36 36 weeks gestation of pregnancy
CPT/HCPCS: 59025; 86900; 86901; 36415; 86850; 85025; 86762; 86592; 81001; 87340; 86701; 80307; 86803; 86804; G0378; G0379; G0480 ×2; S0119; J2300; J2540; J2550; J2590; J3490

== ENCOUNTER 2018-05-31 11:58 | Outpatient (CLI) | payer MEDICAID ==
[2018-05-31 12:41] LABS: APPEARANCE,URINE CLEAR; BILIRUBIN,URINE NEGATIVE (NEGATIVE); COLOR,URINE YELLOW; GLUCOSE, URINE NEGATIVE (NEGATIVE); KETONES,URINE 80 mg/dL (NEGATIVE); LEUKOCYTE ESTERASE,URINE TRACE (NEGATIVE); NITRITE,URINE NEGATIVE (NEGATIVE); PROTEIN,URINE NEGATIVE (NEGATIVE); URINE SPECIFIC GRAVITY 1.012; UROBILINOGEN,URINE NEGATIVE mg/dL (<2.0)
[2018-05-31 12:46] LABS: AMNISURE (ROM) NEGATIVE (NEGATIVE)
[2018-05-31 13:00] LABS: URINE BARBITURATES SCREEN NEGATIVE; URINE BENZODIAZEPINES SCREEN NEGATIVE; URINE COCAINE SCREEN NEGATIVE; URINE METHADONE SCREEN NEGATIVE; URINE PHENCYCLIDINE SCREEN NEGATIVE
[2018-05-31] MEDS ORDERED: RINGERS SOLUTION,LACTATED 1,000 ML IV ONE (13:24)
[2018-05-31] MEDS ORDERED: RINGERS SOLUTION,LACTATED 1,000 ML IV PRN (13:24)
[2018-05-31 13:34] LABS: URINE MARIJUANA (THC) SCREEN UNCONFIRMED POSITIVE
[2018-05-31] MEDS ORDERED: ONDANSETRON 4 MG TAB.RAPDIS ONE (13:36)
[2018-05-31] MEDS ORDERED: ONDANSETRON HCL INJ/PF 4 MG/2 ML SDV IV ONE (14:29)
[2018-05-31] MEDS ORDERED: HYDROXYZINE PAMOATE 50 MG CAPSULE PO ONE (14:47)
[2018-05-31] MEDS ORDERED: HYDROXYZINE PAMOATE 50 MG CAPSULE ONE (14:56)
== END 2018-05-31 15:22 | disposition home or self-care (01) ==
LOC: LC 11:58
PROVIDERS: ATTEND Student in an Organized Health Care Education/Training Program
DX: O47.1 False labor at or after 37 completed weeks of gestation (principal); O99.283 Endocrine, nutritional and metabolic diseases complicating pregnancy, third trimester; E86.0 Dehydration; Z3A.37 37 weeks gestation of pregnancy
CPT/HCPCS: 59025; 84112; 81005; 87081; 80307 ×2; G0480 ×3; S0119; J3490

== ENCOUNTER 2018-06-09 05:53 | Inpatient (IN) | payer MEDICAID ==
[2018-06-09] MEDS ORDERED: RINGERS SOLUTION,LACTATED 1,000 ML IV ONE (06:07)
[2018-06-09] MEDS ORDERED: RINGERS SOLUTION,LACTATED 1,000 ML IV PRN (06:07)
[2018-06-09] MEDS ORDERED: MISOPROSTOL 0.2 MG TABLET ONE (06:08)
[2018-06-09] MEDS ORDERED: OXYTOCIN/NORMAL SALINE 20 UNIT/1,000 ML RTUINJ ONE (06:08)
[2018-06-09] MEDS ORDERED: LIDOCAINE 1% INJ-PF (10 MG/ML) 30 ML SDV ONE (06:08)
--- NOTE | 2018-06-09 06:16 | Admission Physical ---
Datetime Report Generated by CPN: 06/09/2018 06:15 CURRENT ADMISSION Chief Complaint: Uterine Contractions Indication for Induction: Not Applicable Admit Impression : Term, Intrauterine ; Active Labor Admit Plan: Admit to Unit; Initiate Labor Protocol ALLERGIES Medication Allergies: No Medication Allergies: quetiapine fumarate/MO/Nausea (02/09/2018); Penicillins/MO (05/31/2018) Latex: No Latex Allergies Food Allergies: strawberry Environmental Allergies: N/A OBSTETRICAL HISTORY EDC: 06/20/2018 00:00 : 5 Para: 4 Livin Cesareans: 0 Gestational Diabetes: No Rh Sensitization: No Incompetent Cervix: No BRIDGETTE: No Infertility: No ART Treatment: No Uterine Anomaly: No IUGR: No Hx Previous C/S: No Macrosomia: No Hx Loss/Stillborn: No PIH: No Hx : No Placenta Previa/Abruption: No Depression/PP Depression: No PTL/PROM: No Post Hemorrhage: No Current Procedures: Ultrasound; NST Obstetrical History Comments: patient does not have custody of any children, DSS involved SEE RECORDS Alcohol: No Marijuana : Yes Marijuana Comments: patient states she quit smoking but it was less than a month ago Cocaine: No Other Illicit Drugs: No Cigarettes: Current Everyday Smoker. 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 Heart Disease: No Hosp/Surgery: Yes Autoimmune Disorder: No Anesthetic Complications: No Kidney Disease: No Abnormal Pap Smear: No Neuro/Epilepsy: No Psychiatric Disorders: No Other Medical Diseases: No Hepatitis/Liver Disease: No Significant Family History: No Varicosities/Phlebitis: No Trauma/Violence : No Thyroid Dysfunction: No INFECTIOUS HISTORY Gonorrhea: No Genital Herpes: No Chlamydia: No Tuberculosis: No Syphilis: No Hepatitis: No HIV/AIDS Exposure: No Rash or Viral Illness: No HPV: No PHYSICAL EXAM General: Normal HEENT: Normal Neurologic: Normal Thyroid: Normal Heart: Normal Lungs: Normal Breast: Normal Back: Normal Abdomen: Normal Genitourinary Exam: Normal Extremities: Normal DTRs: Normal Pelvic Type: Adequate Vital Signs: Reviewed VAGINAL EXAM Dilatation: 8 Effacement: 100 Station: 0 MEMBRANES Pooling: Negative Membranes: Intact FETUS A EGA: 38.3 Monitoring: External US FHR- Baseline: 130 Variability: Moderate 6-25bpm Accelerations: 15X15 Decelerations: None FHR Category: Category I Estimated Weight (gm): 3400 Presentation: Vertex Admit Comment: DSS involved with patient. PLANS FOR LABOR AND DELIVERY Labor and Delivery: None Pain Management: Epidural Feeding Preference: Formula Benefit of Breast Feed Discussed: Yes INFORMED CONSENT Signature: with User ID: [email or web address]
[2018-06-09 06:39] LABS: ABSOLUTE BASOPHILS # (AUTO) 0.1 10^3/uL (0.0-0.2); ABSOLUTE EOSINOPHILS # (AUTO) 0.4 10^3/uL (0.0-0.6); ABSOLUTE MONOCYTES (AUTO) 1.3 10^3/uL (0.1-1.4); ABSOLUTE NEUT (AUTO) 8.8 10^3/uL (1.7-8.2); BASOPHILS % (AUTO) 0.6 % (0-2); EOSINOPHILS % (AUTO) 2.7 % (0-6); HEMATOCRIT 29.7 % (36.0-47.0); HEMOGLOBIN 10.3 g/dL (12.0-15.5); LYMPHOCYTES % (AUTO) 31.9 % (13-45); MEAN CORPUSCULAR HEMOGLOBIN 28.2 pg (27.0-33.4); MEAN CORPUSCULAR HGB CONC 34.7 g/dL (32.0-36.0); MEAN CORPUSCULAR VOLUME 81 fl (80-97); MONOCYTES % (AUTO) 8.6 % (3-13); PLATELET COUNT 305 10^3/uL (150-450); RED BLOOD COUNT 3.66 10^6/uL (3.72-5.28); RED CELL DISTRIBUTION WIDTH 14.5 % (11.5-14.0); SEGMENTED NEUTROPHILS % (AUTO) 56.2 % (42-78); TOTAL CELLS COUNTED % (AUTO) 100 %; WHITE BLOOD COUNT 15.6 10^3/uL (4.0-10.5)
[2018-06-09 06:48] LABS: APPEARANCE,URINE CLEAR; BILIRUBIN,URINE NEGATIVE (NEGATIVE); COLOR,URINE STRAW; GLUCOSE, URINE NEGATIVE (NEGATIVE); KETONES,URINE NEGATIVE (NEGATIVE); LEUKOCYTE ESTERASE,URINE TRACE (NEGATIVE); NITRITE,URINE NEGATIVE (NEGATIVE); PROTEIN,URINE NEGATIVE (NEGATIVE); URINE SPECIFIC GRAVITY 1.004; UROBILINOGEN,URINE NEGATIVE mg/dL (<2.0)
[2018-06-09 07:03] LABS: URINE AMPHETAMINES SCREEN NEGATIVE; URINE BARBITURATES SCREEN NEGATIVE; URINE BENZODIAZEPINES SCREEN NEGATIVE; URINE COCAINE SCREEN NEGATIVE; URINE MARIJUANA (THC) SCREEN NEGATIVE; URINE METHADONE SCREEN NEGATIVE; URINE PHENCYCLIDINE SCREEN NEGATIVE
[2018-06-09] MEDS ORDERED: IBUPROFEN 800 MG TABLET ONE (07:20)
[2018-06-09] MEDS ORDERED: DIPHENHYDRAMINE HCL 25 MG CAPSULE PO PRN (07:41)
[2018-06-09] MEDS ORDERED: ACETAMINOPHEN 650 MG SUPP.RECT PR PRN (07:41)
[2018-06-09] MEDS ORDERED: PROMETHAZINE HCL 25 MG SUPP.RECT PR PRN (07:41)
[2018-06-09] MEDS ORDERED: PROMETHAZINE HCL INJ 25 MG/1 ML VIAL IV PRN (07:41)
[2018-06-09] MEDS ORDERED: PROMETHAZINE HCL 25 MG TABLET PO PRN (07:41)
[2018-06-09] MEDS ORDERED: NA PHOS,M-B/NA PHOS,DI-BA (ADULT) 133 ML ENEMA PR PRN (07:41)
[2018-06-09] MEDS ORDERED: OXYTOCIN/NORMAL SALINE 20 UNIT/1,000 ML RTUINJ IV PRN (07:41)
[2018-06-09] MEDS ORDERED: BENZOCAINE/MENTHOL AEROSOL SPRAY 56 ML TOP PRN (07:41)
[2018-06-09] MEDS ORDERED: DIPH/PERTUSS(ACELL)/TETANUS VAC/PF 0.5 ML SYR (>=10YO) IM PRN (07:41)
[2018-06-09] MEDS ORDERED: ACETAMINOPHEN WITH CODEINE #3 TABLET PO PRN (07:41)
[2018-06-09] MEDS ORDERED: DIBUCAINE 1% OINTMENT 28 GM TP PRN (07:41)
[2018-06-09] MEDS ORDERED: GLYCERIN/WITCH HAZEL LEAF 1 EACH MED..PAD TP PRN (07:41)
[2018-06-09] MEDS ORDERED: ZOLPIDEM TARTRATE 5 MG TABLET PO PRN (07:41)
[2018-06-09] MEDS ORDERED: MAGNESIUM HYDROXIDE SUSP 30 ML UDCUP PO PRN (07:41)
[2018-06-09] MEDS ORDERED: MEASLES,MUMPS&RUBELLA VACC/PF 0.5 ML VIAL SUBCUT PRN (07:41)
[2018-06-09] MEDS ORDERED: PSEUDOEPHEDRINE HCL 30 MG TABLET PO PRN (07:41)
--- NOTE | 2018-06-09 07:58 | Warning Signs in Babies ---
VOD Warning Signs Datetime Report Generated by [facility]: 06/09/2018 07:58 VOD#608 -Warning Signs in Babies: Viewed with Parent(s)/Family (05/26/2018 12:50:CAITIE Zepeda)
--- NOTE | 2018-06-09 08:10 | Warning Signs in Babies ---
VOD Warning Signs Datetime Report Generated by [facility]: 06/09/2018 08:10 VOD#608 -Warning Signs in Babies: Viewed with Parent(s)/Family (06/09/2018 07:18:CAITIE Zepeda)
--- NOTE | 2018-06-09 08:45 | Delivery Summary ---
Del Sum A-C Datetime Report Generated by CPN: 06/09/2018 08:44 DELIVERY PERSONNEL DELIVERY PERSONNEL: [id number] Delivery Doctor:: Nia Miller MD Labor and Delivery Nurse:: Kimberly Owens RN Nursery Nurse:: Bushra Siu, NARENDRA Skid Worker/PUBLIC HEALTH OFFICER: Myriam Deems, PARTS CONTROL CLERK MATERNAL INFORMATION Delivery Anesthesia: None Medications After Delivery: Pitocin Drip 20 Units/1000ml NSS Estimated Blood Loss (ml): 200 Maternal Complications: None LABOR SUMMARY EDC: 06/20/2018 00:00 No. Babies in Womb: 1 Attempted: No Labor Anesthesia: None LABOR INFORMATION Reason for Induction: Not Applicable Onset of Labor: 06/09/2018 00:05 Complete Dilatation: 06/09/2018 06:45 Oxytocin: N/A Group B Beta Strep: Negative Antibiotics # of Doses: 0 Steroids Given: None Reason Steroids Not Administered: Not Applicable MEMBRANES Membranes Rupture Method: Spontaneous Rupture of Membranes: 06/09/2018 06:45 Length of Rupture (hr): 0.03 Amniotic Fluid Color: Clear Amniotic Fluid Amount: Small Amniotic Fluid Odor: Normal STAGES OF LABOR Stage 1 hr: 6 Stage 1 min: 40 Stage 2 hr: 0 Stage 2 min: 2 Stage 3 hr: 0 Stage 3 min: 15 Total Time in Labor hr: 6 Total Time in Labor min: 57 VAGINAL DELIVERY Episiotomy: None Laceration #1: None Laceration Extension #1: N/A Laceration Repair: Not Applicable Sponge Count Correct: N/A Sharps Count Correct: N/A CSECTION DELIVERY Primary Indication: N/A Secondary Indication: N/A CSection Incidence: N/A Labor: N/A Elective: N/A CSection Incision: N/A BABY A INFORMATION Delivery Date/Time: 06/09/2018 06:47 Method of Delivery: Vaginal Born in Route : No : N/A Forceps: N/A Vacuum Extraction: N/A Shoulder Dystocia : No PRESENTATION/POSITION BABY A Presentation: Cephalic Cephalic Presentation: Vertex Vertex Position: Left Occipital Anterior Breech Presentation: N/A PLACENTA INFORMATION BABY A Placenta Delivery Time : 06/09/2018 07:02 Placenta Method of Delivery: Spontaneous Placenta Status: Delivered SCORES BABY A Heart Rate 1 min: >100 bpm Resp Effort 1 min: Good Cry Reflex Irritability 1 min: Cough or Sneeze or Pulls Away Muscle Tone 1 min: Active Motion Color 1 min: Blue/Pale Resuscitation Effort 1 min: Tactile Stimulation SCORE 1 MIN: 8 Heart Rate 5 min: >100 bpm Resp Effort 5 min: Good Cry Reflex Irritability 5 min: Cough or Sneeze or Pulls Away Muscle Tone 5 min: Active Motion Color 5 min: Body [place], Extremities Blue Resuscitation Effort 5 min: Tactile Stimulation SCORE 5 MIN: 9 INFORMATION BABY A Gestational Age at Delivery: 38.3 Gestational Status: Early Term- 37- 38.6 Weeks Infant Outcome : Liveborn Condition : Stable Sex: Male IDENTIFICATION BABY A Infant Verification Date/Time: 06/09/2018 06:56 ID Band Number: [id number] Mother's Name Verified: Yes RN Verifying : SAbiodun Mckeon, RNC _ N. Angelo, RN WEIGHT/LENGTH BABY A Birthweight (gm): 3370 Weight (lb): 7 Weight (oz): 7 Length (in): 21.75 Length (cm): 55.25 CORD INFORMATION BABY A No. Cord Vessels: 3 Nuchal Cord : N/A Cord Blood Taken: Yes-For Eval (Mom's Blood Type - or O+) Suction: Mouth; Nose ASSESSMENT BABY A Complications: None Physical Findings at Delivery: Within Normal Limits Infant Respirations: Appears Normal Skin to Skin: No Skin to Skin Time (min): 0 Care By: L. Sherron, RN BABY B INFORMATION : N/A SIGNATURES Signature: with User ID: [email or web address]
[2018-06-09] MEDS: FERROUS SULFATE 325 MG TABLET PO SCH ×2 (09:47→17:40)
[2018-06-09] MEDS: SENNOSIDES/DOCUSATE 8.6-50 MG 1 EACH TABLET PO SCH (09:47)
[2018-06-09] MEDS: PRENATAL VITAMIN W DHA CAPSULE PO SCH (09:47)
[2018-06-09] MEDS: DOCUSATE SODIUM 100 MG CAPSULE PO SCH ×2 (09:47→17:41)
[2018-06-09] MEDS: FAMOTIDINE 20 MG TABLET PO SCH ×2 (09:47→21:54)
[2018-06-09] MEDS: IBUPROFEN 800 MG TABLET PO SCH ×2 (13:14→21:54)
[2018-06-09] MEDS: ACETAMINOPHEN WITH CODEINE #3 TABLET PO PRN (17:43)
[2018-06-10] MEDS: IBUPROFEN 800 MG TABLET PO SCH ×3 (06:27→19:28)
[2018-06-10 08:02] LABS: HEMATOCRIT 22.1 % (36.0-47.0); MEAN CORPUSCULAR HEMOGLOBIN 28.2 pg (27.0-33.4); MEAN CORPUSCULAR HGB CONC 34.2 g/dL (32.0-36.0); MEAN CORPUSCULAR VOLUME 82 fl (80-97); PLATELET COUNT 268 10^3/uL (150-450); RED BLOOD COUNT 2.69 10^6/uL (3.72-5.28); RED CELL DISTRIBUTION WIDTH 14.1 % (11.5-14.0); WHITE BLOOD COUNT 14.5 10^3/uL (4.0-10.5)
[2018-06-10 08:34] LABS: HEMOGLOBIN 7.6 g/dL (12.0-15.5)
[2018-06-10] MEDS: PRENATAL VITAMIN W DHA CAPSULE PO SCH (10:18)
[2018-06-10] MEDS: DOCUSATE SODIUM 100 MG CAPSULE PO SCH ×2 (10:18→19:38)
[2018-06-10] MEDS: FERROUS SULFATE 325 MG TABLET PO SCH ×2 (10:18→19:38)
[2018-06-10] MEDS: ACETAMINOPHEN WITH CODEINE #3 TABLET PO PRN (10:24)
[2018-06-10] MEDS: FAMOTIDINE 20 MG TABLET PO SCH (10:24)
[2018-06-10] MEDS: SENNOSIDES/DOCUSATE 8.6-50 MG 1 EACH TABLET PO SCH (10:24)
--- NOTE | 2018-06-10 10:33 | PDOC PROGRESS REPORT ---
Subjective-OB Progress Note for:: 06/10/18 Subjective: tolerating diet, pain controlled with current meds, bleeding slowing, denies ALEJANDRO , SOB, near syncope, dizziness. Physical Exam (OB) Vital Signs: Temp Pulse Resp BP Pulse Ox 97.3 F 76 16 116/72 97 06/09/18 19:46 06/09/18 19:46 06/09/18 19:46 06/09/18 19:46 06/09/18 19:46 Intake & Output 06/09/18 06/10/18 06/11/18 06:59 06:59 06:59 Weight 62.2 kg - Lochia Lochia Amount: Small 10-25 ml Lochia Color: Rubra/Red - Abdomen Description: Soft, Round Hernia Present: No Fundal Description: Firm, Midline Fundal Height: u/u - u/2 - Abdominal Inspection: Normal Distension: No distension Tenderness: Nontender - Extremities Lower extremities: Meir's sign - neg Calf: Normal, Nontender Objective-Diagnostic Laboratory: 06/10/18 07:02 06/10/18 07:02 WBC 14.5 H RBC 2.69 L Hgb 7.6 L D Hct 22.1 L MCV 82 MCH 28.2 MCHC 34.2 RDW 14.1 H Plt Count 268 Assessment and Plan(PN) - Assessment and Plan (1) Bipolar 1 disorder, depressed Is this a current diagnosis for this admission?: Yes (2) Delivery normal Is this a current diagnosis for this admission?: Yes (3) Marijuana abuse Is this a current diagnosis for this admission?: Yes (4) Vaginal delivery Is this a current diagnosis for this admission?: Yes - Time Spent with Patient Time with patient: Less than 15 minutes Medications reviewed and adjusted accordingly: Yes - Disposition Anticipated Discharge: Home Within: within 24 hours
[2018-06-10 11:39] LABS: HEPATITIS C VIRUS AB <0.1 s/co ratio (0.0-0.9)
[2018-06-11] MEDS: FAMOTIDINE 20 MG TABLET PO SCH ×2 (05:00→09:40)
[2018-06-11] MEDS: IBUPROFEN 800 MG TABLET PO SCH (08:27)
[2018-06-11 09:15] VITALS: BP 119/70
[2018-06-11] MEDS: DOCUSATE SODIUM 100 MG CAPSULE PO SCH (09:39)
[2018-06-11] MEDS: SENNOSIDES/DOCUSATE 8.6-50 MG 1 EACH TABLET PO SCH (09:40)
[2018-06-11] MEDS: FERROUS SULFATE 325 MG TABLET PO SCH (09:40)
[2018-06-11] MEDS: PRENATAL VITAMIN W DHA CAPSULE PO SCH (09:40)
--- NOTE | 2018-06-11 10:33 | PDOC DISCHARGE SUMMARY ---
Final Diagnosis Discharge Date: 06/11/18 - Final Diagnosis (1) Bipolar 1 disorder, depressed Is this a current diagnosis for this admission?: Yes (2) Marijuana abuse Is this a current diagnosis for this admission?: Yes (3) Psychosocial stressors Is this a current diagnosis for this admission?: Yes (4) Vaginal delivery Is this a current diagnosis for this admission?: Yes Discharge Data - Discharge Medication Prescriptions: Ibuprofen [Motrin 800 mg Tablet] 800 mg PO Q8 #90 tablet Home Medications: Vit/Iron Fum/Folic AC [ Tablet] 1 tab PO DAILY 02/24/17 Ibuprofen [Motrin 800 mg Tablet] 800 mg PO Q8 #90 tablet 06/11/18 Procedures: NST Intrapartum Procedure(s): Spontaneous Vaginal Delivery - Diagnosis Test Laboratory: Temp Pulse Resp BP Pulse Ox 97.8 F 60 15 119/70 99 06/11/18 09:11 06/11/18 09:11 06/11/18 09:11 06/11/18 09:11 06/11/18 09:11 06/09/18 06/09/18 06/10/18 06:15 06:18 07:02 RBC 3.66 L 2.69 L Hgb 10.3 L 7.6 L D Hct 29.7 L 22.1 L Urine Opiates Screen NEGATIVE - Discharge information/Instructions Discharge Activity: Activity As Tolerated, Balance Activity w/Rest, No Lifting Over 10 Pounds, No Lifting/Push/Pulling, Pelvic Rest, No tub bath Discharge Diet: Regular Disposition: HOME, SELF-CARE Follow up with: [facility] in: 3 - pt to follow up with [facility]
== END 2018-06-11 13:45 | disposition home or self-care (01) | DRG 775 ==
LOC: LC 05:53 → LR 06:13 → 2S 09:00
PROVIDERS: ADMIT Obstetrics & Gynecology; ATTEND Obstetrics & Gynecology
PROC: 10E0XZZ Delivery of Products of Conception, External Approach (ICD-10-PCS; principal; 2018-06-09)
DX: O99.344 Other mental disorders complicating childbirth (principal); O99.324 Drug use complicating childbirth; O99.334 Smoking (tobacco) complicating childbirth; F17.210 Nicotine dependence, cigarettes, uncomplicated; F31.9 Bipolar disorder, unspecified; F12.10 Cannabis abuse, uncomplicated; Z3A.38 38 weeks gestation of pregnancy; Z37.0 Single live birth; Z75.2 Other waiting period for investigation and treatment
CPT/HCPCS: 36415; 80307; 81005; 85025; 85027; 86592; 86803; 86804; 86850; 86900; 86901; 88307; J2590; J3490

== ENCOUNTER 2018-08-22 13:01 | Emergency (ER) | payer MEDICAID ==
[2018-08-22 13:12] VITALS: BP 120/79
--- NOTE | 2018-08-22 13:20 | ER Document Report ---
ED Medical Screen (RME) - General Chief Complaint: Vaginal Discharge Stated Complaint: VAGINAL IRRITATION Time Seen by Provider: 08/22/18 13:18 Notes: 23 years old female presents today with vagina leaching yellow discharge for the last 3 days, took her mom's Diflucan and Monistat but did not improved. Sexually active. Previous history of STD TRAVEL OUTSIDE OF THE [place] IN LAST 30 DAYS: No - Related Data Allergies/Adverse Reactions: quetiapine fumarate [From Seroquel] Allergy (Intermediate, Verified 08/22/18 13: 02) Nausea Penicillins Adverse Reaction (Intermediate, Verified 08/22/18 13:02) STRAWBERRIES Allergy (Mild, Uncoded 08/22/18 13:02) Rash Past Medical History Renal/ Medical History: Denies: Hx Peritoneal Dialysis Musculoskeltal Medical History: Reports Hx Arthritis Psychiatric Medical History: Reports: Hx Bipolar Disorder, Hx Depression - Immunizations Immunizations up to date: Yes Hx Diphtheria, Pertussis, Tetanus Vaccination: Yes Physical Exam - Vital signs Vitals: Temp Pulse Resp BP Pulse Ox 97.7 F 108 H 16 120/79 99 08/22/18 13:11 08/22/18 13:11 08/22/18 13:11 08/22/18 13:11 08/22/18 13:11 Course - Vital Signs Vital signs: Temp Pulse Resp BP Pulse Ox 97.7 F 108 H 16 120/79 99 08/22/18 13:11 08/22/18 13:11 08/22/18 13:11 08/22/18 13:11 08/22/18 13:11
--- NOTE | 2018-08-22 14:09 | ER Document Report ---
ED GI/ - General Chief Complaint: Vaginal Discharge Stated Complaint: VAGINAL IRRITATION Time Seen by Provider: 08/22/18 13:18 Notes: Patient is a 23-year-old female, , who presents with 1 week of vaginal discharge and itchiness. She is also noting a burning sensation with odor. She tried Monistat and fluconazole without much relief of her symptoms. Symptoms started after sexual intercourse. Her last delivery was 2 months ago. She denies flank pain, nausea, vomiting, abdominal pain, headache, back pain or flank pain. TRAVEL OUTSIDE OF THE [place] IN LAST 30 DAYS: No - Related Data Allergies/Adverse Reactions: quetiapine fumarate [From Seroquel] Allergy (Intermediate, Verified 08/22/18 13: 02) Nausea Penicillins Adverse Reaction (Intermediate, Verified 08/22/18 13:02) STRAWBERRIES Allergy (Mild, Uncoded 08/22/18 13:02) Rash Past Medical History - General Information source: Patient - Social History Smoking Status: Current Every Day Smoker Frequency of alcohol use: Occasional Drug Abuse: Marijuana Family History: Reviewed & Not Pertinent Patient has suicidal ideation: No Patient has homicidal ideation: No Renal/ Medical History: Denies: Hx Peritoneal Dialysis Musculoskeletal Medical History: Reports Hx Arthritis Psychiatric Medical History: Reports: Hx Bipolar Disorder, Hx Depression - Immunizations Immunizations up to date: Yes Hx Diphtheria, Pertussis, Tetanus Vaccination: Yes Review of Systems - Review of Systems Notes: REVIEW OF SYSTEMS: CONSTITUTIONAL: -fevers, -chills EENT: -eye pain, -difficulty swallowing, -nasal congestion CARDIOVASCULAR: -chest pain, -syncope. RESPIRATORY: -cough, -SOB GASTROINTESTINAL: -abdominal pain, -nausea, -vomiting, -diarrhea GENITOURINARY: -dysuria, -hematuria, +vaginal discharge MUSCULOSKELETAL: -back pain, -neck pain SKIN: -rash or skin lesions. HEMATOLOGIC: -easy bruising or bleeding. LYMPHATIC: -swollen, enlarged glands. NEUROLOGICAL: -altered mental status or loss of consciousness, -headache, - neurologic symptoms PSYCHIATRIC: -anxiety, -depression. ALL OTHER SYSTEMS REVIEWED AND NEGATIVE. Physical Exam - Vital signs Vitals: Temp Pulse Resp BP Pulse Ox 97.7 F 108 H 16 120/79 99 08/22/18 13:11 08/22/18 13:11 08/22/18 13:11 08/22/18 13:11 08/22/18 13:11 - Notes Notes: PHYSICAL EXAMINATION: GENERAL: Well-appearing. Anxious affect. HEAD: Atraumatic, normocephalic. EYES: Pupils equal round and reactive to light, extraocular movements intact, sclera anicteric, conjunctiva are normal. ENT: nares patent, oropharynx clear without exudates. Moist mucous membranes. NECK: Normal range of motion, supple without lymphadenopathy LUNGS: Breath sounds clear to auscultation bilaterally and equal. No wheezes rales or rhonchi. HEART: Mild tachycardia. ABDOMEN: Soft, nontender, normoactive bowel sounds. No guarding, no rebound. No masses appreciated. : (Chaperoned by CHARANJIT Mcgraw) Small amount of yellow vaginal discharge. No CMT and no uterus or adnexa tenderness. EXTREMITIES: Normal range of motion, no pitting or edema. No cyanosis. NEUROLOGICAL: Cranial nerves grossly intact. Normal speech, normal gait. Normal sensory and motor exams. SKIN: Warm, Dry, normal turgor, no rashes or lesions noted. Course - Re-evaluation Re-evalutation: Patient would like to be empirically treated for gonorrhea and chlamydia. Wet mount result not back before she would like to leave. She will call on Friday the Result Hotline for the results of her tests. Told the patient to always use condoms. She was mildly tachycardic, but appears very anxious and animated. No evidence of PID, TOA, ectopic or appendicitis. - Vital Signs Vital signs: Temp Pulse Resp BP Pulse Ox 97.7 F 108 H 16 120/79 99 08/22/18 13:11 08/22/18 13:11 08/22/18 13:11 08/22/18 13:11 08/22/18 13:11 - Laboratory Laboratory results interpreted by va: 08/22/18 13:24 Urine Ketones TRACE H Urine Urobilinogen 2.0 H Discharge - Discharge Clinical Impression: Vaginal discharge Condition: Stable Disposition: HOME, SELF-CARE Additional Instructions: Call [phone] on Friday for the results of your tests. Always use condoms! VAGINITIS: Your exam shows that you have vaginitis, a vaginal infection. The infection can be caused by a many different organisms, including trichomonas or Gardnerella. The usual symptoms are vaginal irritation and discharge. The treatment is usually antibiotics such as Flagyl. Laboratory tests can determine which germ is responsible. Use the medication as prescribed. Because this infection can be transmitted sexually, your sexual partner may need to be checked and treated also. If your physician has not discussed this with you, please check before resuming sexual relations. If a culture shows gonorrhea or chlamydia, the infection must be reported to the health department. Call the doctor if you develop pelvic pain, fever, or problems with urination, or if you don't improve as expected. VAGINOSIS, BACTERIAL: Your exam shows you have bacterial vaginosis. This condition is due to an overgrowth of bacteria in the vagina. Symptoms may include vaginal itching or pain, a smelly discharge, and sometimes burning with urination. Normally this is not transmitted by sexual contact. Vaginosis can be treated with oral or topical antibiotics. Metronidazole ( Flagyl) pills are usually effective. Topical vaginal creams include Cleocin and Metro-Gel. You should avoid sexual contact until your symptoms are all better. Call the doctor if you develop pelvic pain, fever, or problems with urination, or if you don't improve as expected. VAGINAL YEAST INFECTION: You have evidence of a yeast infection -- called "liam." A vaginal yeast infection often causes itching and discharge. While not dangerous, it can be very unpleasant. A yeast infection often follows the use of powerful antibiotics. It is more likely to occur in diabetics. The treatment now is usually a single pill of Diflucan, but also an antifungal cream or suppository may be used for a few days. You do not need to avoid sexual intercourse. Recurrences are common. You can make a recurrence less likely by wearing cotton underwear and avoiding tight clothing. For mild recurrences, you can try [id number] creams or suppositories that are made specifically for yeast. If the symptoms do not resolve, you should follow up for re-examination. Sometimes treatment of the sexual partner is necessary if infections are recurrent. VAGINAL TRICHOMONAS INFECTION: Trichomoniasis is infection of the vagina or male genital tract with Trichomonas vaginalis. It can be asymptomatic or cause urethritis, vaginitis, or occasionally cystitis, epididymitis, or prostatitis. Diagnosis is by microscopic examination of vaginal or prostatic secretions or by urethral culture. Patients and sex partners are treated with metronidazole. T. vaginalis is a flagellated, sexually transmitted protozoan that more often infects women (about 20% of women of reproductive age) than men. Infection may be asymptomatic in either sex, but asymptomatic is the rule for men. In men, protozoa may persist for long periods in the tract without causing symptoms; thus, protozoa may be transmitted unwittingly to sex partners. Trichomoniasis may account for up to 5% of nongonococcal, nonchlamydial urethritis in men in some areas. Co-infection with gonorrhea and other sexually transmitted diseases (STDs) is common. In women, symptoms range from none to copious, yellow-green, frothy vaginal discharge with soreness of the vulva and perineum, dyspareunia, and dysuria. Asymptomatic infection may become symptomatic at any time as the vulva and perineum become inflamed and edema develops in the labia. The vaginal peacock and surface of the cervix may have punctate, red "strawberry" spots. Urethritis and possibly cystitis may also occur. Men are usually asymptomatic; however, sometimes urethritis results in a discharge that may be transient, frothy, or purulent or that causes dysuria and frequency, usually early in the morning. Often, urethritis is mild and causes only minimal urethral irritation and occasional moisture at the urethral meatus , under the foreskin, or both. Epididymitis and prostatitis are rare complications. Trichomoniasis is suspected in women with vaginitis, in men with urethritis , and in their sex partners. Suspicion is high if symptoms persist after patients have been evaluated and treated for other infections such as gonorrhea and chlamydial, mycoplasmal, and ureaplasmal infections. In women, diagnosis is based on clinical criteria and in-office testing. The saline wet mount is examined microscopically as soon as possible to detect trichomonads.In men, microscopy of urine is insensitive, although occasionally organisms are visible in a first-voided morning specimen or a centrifuged specimen. Cultures of urine and urethral swabs are more sensitive. As with diagnosis of any STD, patients with trichomoniasis should be tested to exclude other common STDs such as gonorrhea and chlamydial infection. Metronidazole or tinidazole 2 g po in a single dose cures up to 95% of women if sex partners are treated simultaneously. Effectiveness of single-dose regimens in men is not as clear, so treatment is typically with metronidazole or tinidazole 500 mg bid for 5 to 7 days. Sex partners should be screened and treated for trichomoniasis and other STDs. If poor adherence to follow-up is likely, treatment can be initiated in sex partners of patients with documented trichomoniasis without confirming the diagnosis in the partner. ANTIBIOTIC THERAPY: You have been given an antibiotic prescription. It's important that you take all the medication, unless instructed otherwise by your physician. Failure to complete the entire course can result in relapse of your condition. Common side effects of antibiotics include nausea, intestinal cramping, or diarrhea. Women may develop vaginal yeast infections, and babies can get yeast (thrush) in the mouth following the use of antibiotics. Contact your physician if you develop significant side effects from this medication. Allergy to this antibiotic can result in hives, wheezing, faintness, or itching. If symptoms of allergy occur, stop the medication and call the doctor. CEPHALOSPORINS: An antibiotic of the cephalosporin class has been prescribed. This type of antibiotic covers a wide variety of infections, including those of the skin, lungs, middle ear, and urinary tract. This antibiotic is somewhat similar to the penicillin family. In rare cases , a person who is allergic to penicillin will also be allergic to this medication. If you have had a severe allergic reaction to penicillin, and have not taken this antibiotic since that time, notify your doctor. Antibiotics which cover many germs ("broad spectrum" antibiotics) are more likely to cause diarrhea or "yeast" infections. Women prone to vaginal yeast problems may suffer an attack after taking this antibiotic. In infants, oral thrush (white spots "stuck" on the cheek) or yeast diaper rash may result. See your doctor if these problems occur. Call the doctor at once if you develop hives, itching, shortness of breath , or lightheadedness. DOXYCYCLINE: Doxycycline (Vibramycin, Doryx) is an antibiotic of the tetracycline family. This type of drug is useful for infections of the respiratory tract and genital tract, and is sometimes used for intestinal infections. Unlike most tetracyclines, doxycycline can be taken with food. It is longer acting, and (usually) less prone to side effects than regular tetracycline. Tetracycline antibiotics can stain immature teeth and SHOULD NOT BE TAKEN BY CHILDREN, NURSING MOTHERS, OR WOMEN. Tetracyclines can make you more prone to sunburn. Abdominal cramping, nausea, and diarrhea are occasional side effects. Women may experience vaginal yeast infections. Call the doctor at once if you develop hives, itching, shortness of breath , or lightheadedness. AZITHROMYCIN: Azithromycin (Zithromax) is a broad spectrum antibiotic in the same class as erythromycin. It can treat a variety of bacterial infections, but is most frequently used for respiratory infections. Azithromycin is extremely long-lasting. It accumulates in body tissues and continues to kill bacteria for many days. In order to improve absorption, Azithromycin should be taken at least one hour before or two hours after a meal. It does not have the same strong tendency to upset the stomach as erythromycin and is usually very well tolerated. Patients who have had a rash or other true allergic reactions to erythromycin should not take this medication. Call if you develop gastrointestinal distress, severe diarrhea, rash, hives, itching, or shortness of breath. METRONIDAZOLE: Metronidazole (Flagyl) has been prescribed. This medication is used to kill a type of bacteria called anaerobes, and protozoan parasites such as trichomonas and Giardia. Flagyl often causes a metallic taste in the mouth and mild nausea. Do not use alcohol in any form with Flagyl (including alcohol in medication elixirs). Flagyl interacts with alcohol to cause flushing, palpitations, headache, stomach cramps, and vomiting. Do not use Flagyl if you are taking Antabuse (disulfiram). Call the doctor at once if you develop rash, shortness of breath, itching, or lightheadedness. FLUCONAZOLE: Fluconazole (Diflucan) is an antifungal drug. It is useful for serious fungal infections, but is also excellent for oral or vaginal yeast infections. Diflucan interacts with some medicines. This is a concern if you are taking anticoagulants (such as Coumadin), phenytoin (Dilantin), cyclosporin, or oral hypoglycemics (such as tolbutamide, Orinase, glipizide, Glucotrol, glyburide, DiaBeta, Glynase, and Micronase). Be sure the doctor knows if you are taking one of these medicines. We don't know how Diflucan affects . If you are planning to become , discuss this with your doctor. Diflucan has few side effects. Minor side effects may include nausea, headache, or diarrhea. Call the doctor if you develop a skin rash, shortness of breath, or other new symptoms. MICONAZOLE: Several brands of miconazole are available without prescription. These medicines are safe and effective for liam (yeast) vaginal infections. You can select suppositories or cream. Brands include Monistat, Gyne-Lotrimin, and Mycelex. Don't use miconazole if you're , unless you discuss it with your doctor. If you develop rash, irritation, fever, increased discharge, or abdominal pain, stop using the medicine and see your doctor. FOLLOW-UP CARE: If you have been referred to a physician for follow-up care, call the physician s office for an appointment as you were instructed or within the next two days. If you experience worsening or a significant change in your symptoms, notify the physician immediately or return to the Emergency Department at any time for re-evaluation. [facility]NO [facility]AL [facility]] - Follow up as needed
[2018-08-22 14:10] LABS: APPEARANCE,URINE CLOUDY; BILIRUBIN,URINE NEGATIVE (NEGATIVE); COLOR,URINE YELLOW; GLUCOSE, URINE NEGATIVE (NEGATIVE); KETONES,URINE TRACE mg/dL (NEGATIVE); LEUKOCYTE ESTERASE,URINE NEGATIVE (NEGATIVE); NITRITE,URINE NEGATIVE (NEGATIVE); PROTEIN,URINE NEGATIVE (NEGATIVE)
[2018-08-22] MEDS ORDERED: LIDOCAINE 1% INJ-PF (10 MG/ML) 30 ML SDV INFIL ONE (14:36)
[2018-08-22] MEDS ORDERED: CEFTRIAXONE INJ 250 MG VIAL IM ONE (14:36)
[2018-08-22] MEDS ORDERED: AZITHROMYCIN 250 MG TABLET PO ONE (14:36)
[2018-08-22 15:18] LABS: RBCS (WET MOUNT) NO RBCS SEEN; T.VAGINALIS (WET MOUNT) NO TRICHOMONAS SEEN; WBCS (WET MOUNT) RARE WBCS SEEN; YEAST (WET MOUNT) NO YEAST SEEN
[2018-08-22 16:49] LABS: CHLAM PCR NOT DETECTED (NOT DETECT); GON PCR NOT DETECTED (NOT DETECT)
== END 2018-08-22 16:13 | disposition home or self-care (01) ==
LOC: ER 13:01
DX: N89.8 Other specified noninflammatory disorders of vagina (principal); L29.9 Pruritus, unspecified; R20.8 Other disturbances of skin sensation; R00.0 Tachycardia, unspecified; F17.200 Nicotine dependence, unspecified, uncomplicated; F12.10 Cannabis abuse, uncomplicated; Z88.8 Allergy status to other drugs, medicaments and biological substances; Z91.018 Allergy to other foods
CPT/HCPCS: 99283; 96372; 87210; 81025; 81001; 87491; 87591; Q0144; J3490; J0696

== ENCOUNTER 2018-11-16 14:31 | Emergency (ER) | payer SELFPAY ==
--- NOTE | 2018-11-16 15:14 | ER Document Report ---
ED Medical Screen (RME) - General Chief Complaint: Abdominal Pain Stated Complaint: ABDOMINAL PAIN Time Seen by Provider: 11/16/18 15:05 TRAVEL OUTSIDE OF THE [place] IN LAST 30 DAYS: No - Related Data Allergies/Adverse Reactions: quetiapine fumarate [From Seroquel] Allergy (Intermediate, Verified 11/16/18 14:32) Nausea Penicillins Adverse Reaction (Intermediate, Verified 11/16/18 14:32) STRAWBERRIES Allergy (Mild, Uncoded 11/16/18 14:32) Rash Past Medical History Renal/ Medical History: Denies: Hx Peritoneal Dialysis Musculoskeltal Medical History: Reports Hx Arthritis Psychiatric Medical History: Reports: Hx Bipolar Disorder, Hx Depression - Immunizations Immunizations up to date: Yes Hx Diphtheria, Pertussis, Tetanus Vaccination: Yes Physical Exam - Vital signs Vitals: Temp Pulse Resp BP Pulse Ox 99.3 F 104 H 16 125/74 97 11/16/18 14:40 11/16/18 14:40 11/16/18 14:40 11/16/18 14:40 11/16/18 14:40 Course - Re-evaluation Re-evalutation: 11/16/18 15:14 23-year-old female whose had 5 pregnancies prior that presents for evaluation of pelvic pain and vaginal discharge over the last week. It is made her have pain with sexual intercourse. Says it is a foul-smelling odor. Had bacterial vaginosis 1 month prior. I will plan for this patient undergo further investigation evaluation by secondary provider, the the appropriate diagnostics, disposition and workup will be deferred to that provider. I have performed a rapid screening examination and they will require further evaluation. - Vital Signs Vital signs: Temp Pulse Resp BP Pulse Ox 99.3 F 104 H 16 125/74 97 11/16/18 14:40 11/16/18 14:40 11/16/18 14:40 11/16/18 14:40 11/16/18 14:40
[2018-11-16 16:29] LABS: APPEARANCE,URINE SLIGHTLY-CLOUDY; BILIRUBIN,URINE NEGATIVE (NEGATIVE); COLOR,URINE YELLOW; GLUCOSE, URINE NEGATIVE (NEGATIVE); KETONES,URINE NEGATIVE (NEGATIVE); LEUKOCYTE ESTERASE,URINE NEGATIVE (NEGATIVE); NITRITE,URINE NEGATIVE (NEGATIVE); PROTEIN,URINE NEGATIVE (NEGATIVE)
--- NOTE | 2018-11-16 16:41 | ER Document Report ---
ED GI/ - General Mode of Arrival: Ambulatory Information source: Patient TRAVEL OUTSIDE OF THE [place] IN LAST 30 DAYS: No - General Chief Complaint: Abdominal Pain Stated Complaint: ABDOMINAL PAIN Time Seen by Provider: 11/16/18 15:05 Notes: 23-year-old female who presents to the emergency department today with complaints of lower abdominal pain with associated white colored vaginal discharge and pain. Patient states she has a history of bacterial vaginosis and her symptoms today are similar to when she had that. Patient describes the discharge as thicker and heavier than normal discharge. Patient states that she took Azo x2 days ago which removed some of the odor but it increased her pain. Patient also complains of painful intercourse. Patient denies any new sexual partners. (LESLY CHAMORRO) - Related Data Allergies/Adverse Reactions: quetiapine fumarate [From Seroquel] Allergy (Intermediate, Verified 11/16/18 14:32) Nausea Penicillins Adverse Reaction (Intermediate, Verified 11/16/18 14:32) STRAWBERRIES Allergy (Mild, Uncoded 11/16/18 14:32) Rash Past Medical History - General Information source: Patient - Social History Smoking Status: Current Every Day Smoker Cigarette use (# per day): Yes Frequency of alcohol use: None Drug Abuse: None Lives with: Family Family History: Reviewed & Not Pertinent Patient has suicidal ideation: No Patient has homicidal ideation: No Musculoskeletal Medical History: Reports Hx Arthritis Psychiatric Medical History: Reports: Hx Bipolar Disorder, Hx Depression - Immunizations Immunizations up to date: Yes Hx Diphtheria, Pertussis, Tetanus Vaccination: Yes Review of Systems - Review of Systems Constitutional: No symptoms reported EENT: No symptoms reported Cardiovascular: No symptoms reported Respiratory: No symptoms reported Gastrointestinal: See HPI, Abdominal pain Genitourinary: No symptoms reported Female Genitourinary: Vaginal discharge, Vaginal odor, Painful intercourse Musculoskeletal: No symptoms reported Skin: No symptoms reported Hematologic/Lymphatic: No symptoms reported Neurological/Psychological: No symptoms reported -: Yes All other systems reviewed and negative Physical Exam - Genitourinary Speculum exam: Vaginal discharge - moderate Bimanuel exam: No: Cervical motion tender, Adnexal tenderness - Vital signs Vitals: Temp Pulse Resp BP Pulse Ox 99.3 F 104 H 16 125/74 97 11/16/18 14:40 11/16/18 14:40 11/16/18 14:40 11/16/18 14:40 11/16/18 14:40 - Notes Notes: PHYSICAL EXAM GENERAL: Alert, interacts well. No acute distress. HEAD: Normocephalic, atraumatic. EYES: Pupils equal, round, and reactive to light. Extraocular movements intact. ENT: Oral mucosa moist, tongue midline. NECK: Full range of motion. Supple. Trachea midline. LUNGS: Clear to auscultation bilaterally, no wheezes, rales, or rhonchi. No respiratory distress. HEART: Regular rate and rhythm. No murmurs, gallops, or rubs. ABDOMEN: Soft, non-tender. Non-distended. Bowel sounds present in all 4 quadrants. No guarding, rigidity, or rebound. EXTREMITIES: Moves all 4 extremities spontaneously. NEUROLOGICAL: Alert and oriented x3. Normal speech. PSYCH: Normal affect, normal mood. SKIN: Warm, dry, normal turgor. No rashes or lesions noted. (LESLY CHAMORRO) Course - Re-evaluation Re-evalutation: 11/16/18 17:25 No evidence of PID, GC chlamydia swabs are pending although symptoms are not suggestive of this, she will be discharged to home, exam consistent with bacterial vaginosis, patient will be treated. Due to recent evidence that bacterial vaginosis may actually be carried as Gardnerella vaginalis in the male partner antibiotics will be provided for the male partner as well. Discharged home. (EVELYN MILAN) - Vital Signs Vital signs: Temp Pulse Resp BP Pulse Ox 98.1 F 88 16 120/70 100 11/16/18 17:35 11/16/18 17:35 11/16/18 17:35 11/16/18 17:35 11/16/18 17:35 - Laboratory Laboratory results interpreted by me: 11/16/18 16:08 Urine Urobilinogen 2.0 H Discharge - Discharge Clinical Impression: Bacterial vaginosis Condition: Stable Disposition: HOME, SELF-CARE Instructions: Vaginosis, Bacterial ([facility]) Prescriptions: Metronidazole [Flagyl 500 mg Tablet] 500 mg PO BID #28 tablet Scribe Attestation: 11/16/18 21:52 I personally performed the services described in the documentation, reviewed and edited the documentation which was dictated to the scribe in my presence, and it accurately records my words and actions. (EVELYN MILAN) Scribe Documentation - Scribe Written by Beth:: Beth Ochoa, 11/16/2018 [id number] acting as scribe for :: Mariely
[2018-11-16 17:06] LABS: T.VAGINALIS (WET MOUNT) NO TRICHOMONAS SEEN; WBCS (WET MOUNT) NO WBCS SEEN; YEAST (WET MOUNT) NO YEAST SEEN
[2018-11-16 17:35] VITALS: BP 120/70
[2018-11-16 18:34] LABS: CHLAM PCR NOT DETECTED (NOT DETECT); GON PCR NOT DETECTED (NOT DETECT)
== END 2018-11-16 17:35 | disposition home or self-care (01) ==
LOC: ER 14:31
DX: N76.0 Acute vaginitis (principal); B96.89 Other specified bacterial agents as the cause of diseases classified elsewhere; R10.30 Lower abdominal pain, unspecified; F17.210 Nicotine dependence, cigarettes, uncomplicated
CPT/HCPCS: 81001; 81025; 87086; 87210; 87491; 87591; 99284

== ENCOUNTER 2019-02-02 23:07 | Emergency (ER) | payer SELFPAY ==
[2019-02-02 23:36] VITALS: BP 128/62
== END 2019-02-03 00:30 | disposition left against medical advice (07) ==
LOC: ER 23:07
DX: Z53.21 Procedure and treatment not carried out due to patient leaving prior to being seen by health care provider (principal); R10.2 Pelvic and perineal pain

== ENCOUNTER 2019-08-15 18:12 | Outpatient (CLI) | payer SELFPAY ==
[2019-08-15 19:06] LABS: APPEARANCE,URINE CLOUDY; BILIRUBIN,URINE NEGATIVE (NEGATIVE); COLOR,URINE AMBER; GLUCOSE, URINE NEGATIVE (NEGATIVE); KETONES,URINE 20 mg/dL (NEGATIVE); LEUKOCYTE ESTERASE,URINE TRACE (NEGATIVE); NITRITE,URINE POSITIVE (NEGATIVE); PROTEIN,URINE 30 mg/dL (NEGATIVE); URINE SPECIFIC GRAVITY 1.019
[2019-08-15 19:25] LABS: URINE AMPHETAMINES SCREEN NEGATIVE; URINE BARBITURATES SCREEN NEGATIVE; URINE BENZODIAZEPINES SCREEN NEGATIVE; URINE COCAINE SCREEN NEGATIVE; URINE METHADONE SCREEN NEGATIVE; URINE PHENCYCLIDINE SCREEN NEGATIVE
[2019-08-15 19:50] LABS: URINE MARIJUANA (THC) SCREEN UNCONFIRMED POSITIVE
[2019-08-15] MEDS ORDERED: ACETAMINOPHEN 325 MG TABLET ONE (20:21)
[2019-08-15] MEDS ORDERED: ACETAMINOPHEN 325 MG TABLET PO ONE (21:00)
[2019-08-15 21:03] LABS: BACTERIA (WET MOUNT) 3+ BACTERIA SEEN; RBCS (WET MOUNT) NO RBCS SEEN; T.VAGINALIS (WET MOUNT) NO TRICHOMONAS SEEN; WBCS (WET MOUNT) 2+ WBCS SEEN; YEAST (WET MOUNT) NO YEAST SEEN
--- NOTE | 2019-08-15 22:20 | RADIOLOGY REPORT (SQ) ---
EXAM DESCRIPTION: US LIMITED COMPLETED DATE/TME: 08/15/2019 00:00 CLINICAL HISTORY: 24 years, Female, 33wks, cervix length, limited care, fluid COMPARISON: None. TECHNIQUE: Limited emergent obstetric ultrasound LIMITATIONS: None. FINDINGS: There is a single, live intrauterine gestation in the cephalic presentation. Cervical length is 3.4 cm. Amniotic fluid index 15.3 cm. The placenta is posterior in location with a grade 1 echotexture. heart tones obtained at 145 bpm. A detailed anatomic assessment was not performed. Ultrasound age is 33 weeks 5 days. Estimated weight 4 lbs. 15 oz. +/- 12 ounces IMPRESSION: Single live IUP as above. Nonemergent follow-up recommended copyright 2010 [employer]- All Rights Reserved
[2019-08-15 22:34] LABS: CHLAM PCR NOT DETECTED (NOT DETECT)
== END 2019-08-15 23:30 | disposition home or self-care (01) ==
LOC: LC 18:12
PROVIDERS: ATTEND Student in an Organized Health Care Education/Training Program
PROC: 4A1HXCZ Monitoring of Products of Conception, Cardiac Rate, External Approach (ICD-10-PCS; principal; 2019-08-15)
DX: Z34.83 Encounter for supervision of other normal pregnancy, third trimester (principal)
CPT/HCPCS: 59025; 94760; 87086; 87210; 87088; 81001; 80307; 87491; 87591; 76815; G0480 ×2; 80349; 87186

== ENCOUNTER 2019-09-17 18:45 | Outpatient (CLI) | payer SELFPAY ==
[2019-09-17 20:18] LABS: APPEARANCE,URINE SLIGHTLY-CLOUDY; BILIRUBIN,URINE NEGATIVE (NEGATIVE); COLOR,URINE YELLOW; GLUCOSE, URINE NEGATIVE (NEGATIVE); KETONES,URINE NEGATIVE (NEGATIVE); LEUKOCYTE ESTERASE,URINE NEGATIVE (NEGATIVE); NITRITE,URINE NEGATIVE (NEGATIVE); PROTEIN,URINE NEGATIVE (NEGATIVE); URINE SPECIFIC GRAVITY 1.018; UROBILINOGEN,URINE NEGATIVE mg/dL (<2.0)
[2019-09-17 20:36] LABS: URINE AMPHETAMINES SCREEN NEGATIVE; URINE BARBITURATES SCREEN NEGATIVE; URINE BENZODIAZEPINES SCREEN NEGATIVE; URINE COCAINE SCREEN NEGATIVE; URINE MARIJUANA (THC) SCREEN NEGATIVE; URINE METHADONE SCREEN NEGATIVE; URINE PHENCYCLIDINE SCREEN NEGATIVE
[2019-09-17 20:40] LABS: T.VAGINALIS (WET MOUNT) NO TRICHOMONAS SEEN; WBCS (WET MOUNT) 4+ WBCS SEEN; YEAST (WET MOUNT) NO YEAST SEEN
[2019-09-17 20:41] LABS: BACTERIA (WET MOUNT) 4+ BACTERIA SEEN; EPITHELIALS (WET MOUNT) 4+ EPITHELIALS SEEN; RBCS (WET MOUNT) NO RBCS SEEN
[2019-09-17 22:06] LABS: CHLAM PCR NOT DETECTED (NOT DETECT)
[2019-09-17] MEDS ORDERED: METRONIDAZOLE 500 MG TABLET ONE (22:29)
[2019-09-17] MEDS ORDERED: HYDROXYZINE PAMOATE 50 MG CAPSULE ONE (22:30)
[2019-09-17] MEDS ORDERED: HYDROXYZINE PAMOATE 50 MG CAPSULE PO ONE (23:00)
[2019-09-17] MEDS ORDERED: METRONIDAZOLE 500 MG TABLET PO ONE (23:00)
--- NOTE | 2019-09-18 01:02 | Non Stress Test Report ---
Non Stress Test Datetime Report Generated by CPN: 09/18/2019 01:02 DEMOGRAPHIC EGA NST: 38.1 INDICATION Indication for Study: Ordered by Provider MONITORING Monitor Explained: Monitor Explained; Test Explained; Patient Verbalized Understanding Time on Monitor: 09/17/2019 19:12 Time off Monitor: 09/17/2019 22:22 NST Duration: 190 NST INTERVENTIONS NST Interventions: PO Hydration Physician Notified NST: Dr Younger BABY A: [id number] BABY A Movement : Present Contraction Frequency : irrreg FHR Baseline : 125 Accelerations : 15X15 Decelerations : None Variability : Moderate 6-25bpm NST Review: Meets Criteria for Reactive NST NST Review and Verified By : NARENDRA Altman NSDerick Results: Reactive NST REPORT Report Trigger: Send Report
== END 2019-09-17 23:00 | disposition home or self-care (01) ==
LOC: LC 18:45
PROVIDERS: ATTEND Obstetrics & Gynecology
PROC: 4A1HXCZ Monitoring of Products of Conception, Cardiac Rate, External Approach (ICD-10-PCS; principal; 2019-09-17)
DX: O47.1 False labor at or after 37 completed weeks of gestation (principal); Z3A.38 38 weeks gestation of pregnancy
CPT/HCPCS: 59025; 80307; 81005; 87081; 87210; 87491; 87591

== ENCOUNTER 2019-09-24 17:40 | Inpatient (IN) | payer SELFPAY ==
[2019-09-24 18:25] LABS: APPEARANCE,URINE SLIGHTLY-CLOUDY; BILIRUBIN,URINE NEGATIVE (NEGATIVE); COLOR,URINE YELLOW; GLUCOSE, URINE NEGATIVE (NEGATIVE); KETONES,URINE NEGATIVE (NEGATIVE); LEUKOCYTE ESTERASE,URINE TRACE (NEGATIVE); NITRITE,URINE NEGATIVE (NEGATIVE); PROTEIN,URINE NEGATIVE (NEGATIVE); UROBILINOGEN,URINE NEGATIVE mg/dL (<2.0)
--- NOTE | 2019-09-24 18:39 | Non Stress Test Report ---
Non Stress Test Datetime Report Generated by CPN: 09/24/2019 18:39 DEMOGRAPHIC EGA NST: 39.1 INDICATION Indication for Study: Ordered by Provider VITAL SIGNS Temperature - NST: 97.9 Pulse - NST: 80 RESP - NST: 16 NBPSYS NST: 101 NBPDIA NST: 60 MONITORING Monitor Explained: Monitor Explained; Test Explained; Patient Verbalized Understanding Time on Monitor: 09/24/2019 17:50 Time off Monitor: 09/24/2019 18:37 NST Duration: 47 NST INTERVENTIONS NST Interventions: PO Hydration; Meal Given Physician Notified NST: Dr. Gonzalez on unit, reviewed fht BABY A: [id number] BABY A Movement : Present Contraction Frequency : irregular FHR Baseline : 130 Accelerations : 15X15 Decelerations : None Variability : Moderate 6-25bpm NST Review: Meets Criteria for Reactive NST NST Review and Verified By : Joseph Barrow RN NST Results: Reactive NST REPORT Report Trigger: Send Report
[2019-09-24] MEDS ORDERED: RINGERS SOLUTION,LACTATED 1,000 ML IV ONE (18:45)
[2019-09-24] MEDS ORDERED: RINGERS SOLUTION,LACTATED 1,000 ML IV PRN (18:45)
[2019-09-24 18:52] LABS: URINE AMPHETAMINES SCREEN NEGATIVE; URINE BARBITURATES SCREEN NEGATIVE; URINE BENZODIAZEPINES SCREEN NEGATIVE; URINE COCAINE SCREEN NEGATIVE; URINE MARIJUANA (THC) SCREEN NEGATIVE; URINE METHADONE SCREEN NEGATIVE; URINE PHENCYCLIDINE SCREEN NEGATIVE
[2019-09-24] MEDS ORDERED: LIDOCAINE 1% INJ-PF (10 MG/ML) 30 ML SDV ONE (18:59)
[2019-09-24] MEDS ORDERED: OXYTOCIN/NORMAL SALINE 20 UNIT/1,000 ML RTUINJ ONE (18:59)
[2019-09-24] MEDS ORDERED: MISOPROSTOL 0.2 MG TABLET ONE (18:59)
[2019-09-24] MEDS ORDERED: OXYTOCIN 10 UNIT/ML VIAL ONE (18:59)
[2019-09-24] MEDS ORDERED: FENTANYL CITRATE INJ/PF 100 MCG/2 ML AMPUL ONE (19:31)
[2019-09-24] MEDS ORDERED: PHENYLEPHRINE HCL INJ/PF 10 MG/1 ML SDV ONE (19:31)
[2019-09-24] MEDS ORDERED: EPHEDRINE SULFATE INJ 50 MG/1 ML AMPULE ONE (19:31)
[2019-09-24] MEDS ORDERED: FENTANYL/BUPIVACAINE/NS/PF 300 MCG/150 ML RTUINJ EPI ONE (19:31)
[2019-09-24 19:32] LABS: ABSOLUTE BASOPHILS # (AUTO) 0.1 10^3/uL (0.0-0.2); ABSOLUTE EOSINOPHILS # (AUTO) 0.4 10^3/uL (0.0-0.6); ABSOLUTE LYMPHOCYTES (AUTO) 3.1 10^3/uL (0.5-4.7); ABSOLUTE MONOCYTES (AUTO) 0.7 10^3/uL (0.1-1.4); ABSOLUTE NEUT (AUTO) 6.9 10^3/uL (1.7-8.2); BASOPHILS % (AUTO) 0.5 % (0-2); EOSINOPHILS % (AUTO) 3.4 % (0-6); HEMATOCRIT 30.7 % (36.0-47.0); HEMOGLOBIN 10.4 g/dL (12.0-15.5); LYMPHOCYTES % (AUTO) 27.9 % (13-45); MEAN CORPUSCULAR HEMOGLOBIN 27.2 pg (27.0-33.4); MEAN CORPUSCULAR HGB CONC 33.8 g/dL (32.0-36.0); MEAN CORPUSCULAR VOLUME 81 fl (80-97); MONOCYTES % (AUTO) 6.5 % (3-13); PLATELET COUNT 247 10^3/uL (150-450); RED BLOOD COUNT 3.82 10^6/uL (3.72-5.28); RED CELL DISTRIBUTION WIDTH 14.5 % (11.5-14.0); SEGMENTED NEUTROPHILS % (AUTO) 61.7 % (42-78); TOTAL CELLS COUNTED % (AUTO) 100 %; WHITE BLOOD COUNT 11.2 10^3/uL (4.0-10.5)
[2019-09-24] MEDS ORDERED: BUPIVACAINE HCL 0.25 % INJ/PF (2.5 MG/1 ML) 30 ML VIAL ONE (19:32)
[2019-09-24] MEDS ORDERED: DIBUCAINE 1% OINTMENT 56 GM TP PRN (21:41)
[2019-09-24] MEDS ORDERED: MEASLES,MUMPS&RUBELLA VACC/PF 0.5 ML VIAL SUBCUT PRN (21:41)
[2019-09-24] MEDS ORDERED: PSEUDOEPHEDRINE HCL 30 MG TABLET PO PRN (21:41)
[2019-09-24] MEDS ORDERED: ACETAMINOPHEN WITH CODEINE #3 TABLET PO PRN (21:41)
[2019-09-24] MEDS ORDERED: MAGNESIUM HYDROXIDE SUSP 30 ML UDCUP PO PRN (21:41)
[2019-09-24] MEDS ORDERED: PROMETHAZINE HCL 25 MG SUPP.RECT PR PRN (21:41)
[2019-09-24] MEDS ORDERED: DIPH/PERTUSS(ACELL)/TETANUS VAC/PF 0.5 ML SYR (>=10YO) IM PRN (21:41)
[2019-09-24] MEDS ORDERED: OXYTOCIN/NORMAL SALINE 20 UNIT/1,000 ML RTUINJ IV PRN (21:41)
[2019-09-24] MEDS ORDERED: PROMETHAZINE HCL 25 MG TABLET PO PRN (21:41)
[2019-09-24] MEDS ORDERED: NA PHOS,M-B/NA PHOS,DI-BA (ADULT) 133 ML ENEMA PR PRN (21:41)
[2019-09-24] MEDS ORDERED: BENZOCAINE/MENTHOL AEROSOL SPRAY 56 ML TOP PRN (21:41)
[2019-09-24] MEDS ORDERED: DIPHENHYDRAMINE HCL 25 MG CAPSULE PO PRN (21:41)
[2019-09-24] MEDS ORDERED: PROMETHAZINE HCL INJ 25 MG/1 ML VIAL IV PRN (21:41)
[2019-09-24] MEDS ORDERED: ZOLPIDEM TARTRATE 5 MG TABLET PO PRN (21:41)
[2019-09-24] MEDS ORDERED: ACETAMINOPHEN 325 MG TABLET PO PRN (21:41)
[2019-09-24] MEDS ORDERED: GLYCERIN/WITCH HAZEL LEAF 1 EACH MED..WIPE TP PRN (21:41)
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
[2019-09-24] MEDS ORDERED: IBUPROFEN 800 MG TABLET ONE (23:58)
[2019-09-25] MEDS: FAMOTIDINE 20 MG TABLET PO SCH ×3 (00:41→22:23)
[2019-09-25] MEDS: IBUPROFEN 800 MG TABLET PO SCH ×4 (00:41→22:22)
--- NOTE | 2019-09-25 02:34 | Delivery Summary ---
Del Sum A-C Datetime Report Generated by CPN: 09/25/2019 02:34 DELIVERY PERSONNEL DELIVERY PERSONNEL: [id number] Delivery Doctor:: Lena Gonzalez MD Anesthesiologist:: Denia Maldonado MD Labor and Delivery Nurse:: Anum Robins RNstem shaper Nurse:: CAITIE Jauregui Food And Drug Research Scientist/HOLIDAY DETECTOR OPERATOR: Sobia Maynard, ST MATERNAL INFORMATION Delivery Anesthesia: Epidural Medications After Delivery: Pitocin Drip 20 Units/1000ml NSS; Cytotec 1000mcg Per Rectum/Vagina Estimated Blood Loss (ml): 120 Delivery QBL Comment: 120 total qbl:342 to include recovery Maternal Complications: None Complication Details: Limited Care Provider Comments: VFI delivered in ARIEL presentation. Tight nuchal cord. Shoulders and body delivered without difficulty. Cord doubly clamped and cut. Infant to maternal abd for NRP. Placenta delivered intact spontaneously. FF at U. Cytotec 1000mcg placed per rectum for prophy. No perineal lacerations. Mother and baby stable upon provider leaving the room. LABOR SUMMARY EDC: 09/30/2019 00:00 No. Babies in Womb: 1 Attempted: No Labor Anesthesia: Epidural LABOR INFORMATION Reason for Induction: Not Applicable Onset of Labor: 09/24/2019 17:00 Complete Dilatation: 09/24/2019 21:03 Oxytocin: N/A Group B Beta Strep: 1 NO GROUP B STREPTOCOCCUS RECOVERED Steroids Given: None Reason Steroids Not Administered: Not Applicable MEMBRANES Membranes Rupture Method: Spontaneous Rupture of Membranes: 09/24/2019 18:40 Length of Rupture (hr): 2.47 Amniotic Fluid Color: Clear Amniotic Fluid Amount: Large Amniotic Fluid Odor: Normal STAGES OF LABOR Stage 1 hr: 4 Stage 1 min: 3 Stage 2 hr: 0 Stage 2 min: 5 Stage 3 hr: 0 Stage 3 min: 2 Total Time in Labor hr: 4 Total Time in Labor min: 10 VAGINAL DELIVERY Episiotomy: None Laceration #1: None Laceration Extension #1: N/A Laceration Repair: Not Applicable Laceration Repair Note: no perineal lacerations Sponge Count Correct: Yes Sharps Count Correct: Yes CSECTION DELIVERY Primary Indication: N/A Secondary Indication: N/A CSection Incision: N/A BABY A INFORMATION Delivery Date/Time: 09/24/2019 21:08 (Annotations: Data stored by [facility] on behalf of user) Method of Delivery: Vaginal Born in Route : No : N/A Forceps: N/A Vacuum Extraction: N/A Shoulder Dystocia : No PRESENTATION/POSITION BABY A Presentation: Cephalic Cephalic Presentation: Vertex Vertex Position: Left Occipital Anterior Breech Presentation: N/A PLACENTA INFORMATION BABY A Placenta Delivery Time : 09/24/2019 21:10 Placenta Method of Delivery: Spontaneous Placenta Status: Delivered SCORES BABY A Heart Rate 1 min: >100 bpm Resp Effort 1 min: Good Cry Reflex Irritability 1 min: Cough or Sneeze or Pulls Away Muscle Tone 1 min: Active Motion Color 1 min: Body Hodges, Extremities Blue Resuscitation Effort 1 min: Tactile Stimulation SCORE 1 MIN: 9 Heart Rate 5 min: >100 bpm Resp Effort 5 min: Good Cry Reflex Irritability 5 min: Cough or Sneeze or Pulls Away Muscle Tone 5 min: Active Motion Color 5 min: Body Hodges, Extremities Blue Resuscitation Effort 5 min: Tactile Stimulation SCORE 5 MIN: 9 INFORMATION BABY A Gestational Age at Delivery: 39.1 Gestational Status: Full Term- 39- 40.6 Weeks Outcome : Liveborn Condition : Stable Infant Sex: Female IDENTIFICATION BABY A Infant Verification Date/Time: 09/24/2019 21:22 ID Band Number: [id number] Mother's Name Verified: Yes RN Verifying Infant: Britany Quinones. RN Additional Verifying Personnel: Audrey uBrnham RN WEIGHT/LENGTH BABY A Infant Birthweight (gm): 3214 Weight (lb): 7 Infant Weight (oz): 1 Infant Length (in): 18.75 Infant Length (cm): 47.63 CORD INFORMATION BABY A No. Cord Vessels: 3 Nuchal Cord : Around Neck x1, Loose Cord Blood Taken: Yes-For Eval (Mom's Blood Type - or O+) Infant Suction: Mouth ASSESSMENT BABY A Physical Findings at Delivery: Within Normal Limits; Other Physical Findings- Other: small void and terminal med noted Respirations: Appears Normal Skin to Skin: Yes Skin to Skin Time (min): 60 Guard Rail Installer/ALS Called : No Transferred To: Remains with Mother BABY B INFORMATION : N/A SIGNATURES Signature: with User ID: [email or web address]
[2019-09-25 07:29] LABS: HEMATOCRIT 26.3 % (36.0-47.0); HEMOGLOBIN 8.9 g/dL (12.0-15.5); MEAN CORPUSCULAR HEMOGLOBIN 27.9 pg (27.0-33.4); MEAN CORPUSCULAR VOLUME 82 fl (80-97); PLATELET COUNT 193 10^3/uL (150-450); RED CELL DISTRIBUTION WIDTH 14.4 % (11.5-14.0); WHITE BLOOD COUNT 10.2 10^3/uL (4.0-10.5)
[2019-09-25] MEDS: ACETAMINOPHEN WITH CODEINE #3 TABLET PO PRN ×2 (08:49→17:40)
[2019-09-25] MEDS: DOCUSATE SODIUM 100 MG CAPSULE PO SCH ×2 (09:45→17:40)
[2019-09-25] MEDS: PRENATAL VITAMIN W DHA CAPSULE PO SCH (10:46)
[2019-09-25] MEDS: SENNOSIDES/DOCUSATE 8.6-50 MG 1 EACH TABLET PO SCH (10:46)
[2019-09-25] MEDS: FERROUS SULFATE 325 MG TABLET PO SCH ×2 (10:46→17:40)
--- NOTE | 2019-09-25 11:23 | PDOC PROGRESS REPORT ---
Subjective-OB Progress Note for:: 09/25/19 Subjective: Pt doing well, no concerns. She reports light bleeding, reg diet and voiding without difficulty. Physical Exam (OB) Vital Signs: Temp Pulse Resp BP Pulse Ox 97.8 F 73 16 107/78 100 09/25/19 07:33 09/25/19 07:33 09/25/19 07:33 09/25/19 07:33 09/25/19 07:33 Intake & Output 09/24/19 09/25/19 09/26/19 06:59 06:59 05:59 Weight 63.7 kg - PIH/Pre-Eclampsia DTR's: 2 + Clonus: Negative Headache: Absent Epigastric Pain: No Visual Changes: No - Lochia Lochia Amount: Small 10-25 ml Lochia Color: Rubra/Red - Abdomen Hernia Present: No Fundal Description: Firm, Midline Fundal Height: 1/u - 2/u Objective-Diagnostic Laboratory: 09/25/19 06:57 09/24/19 09/24/19 09/24/19 17:47 19:22 19:22 WBC 11.2 H RBC 3.82 Hgb 10.4 L Hct 30.7 L MCV 81 MCH 27.2 MCHC 33.8 RDW 14.5 H Plt Count 247 Seg Neutrophils % 61.7 Urine Color YELLOW Urine Appearance SLIGHTLY-CLOUDY Urine pH 6.0 Ur Specific [place] 1.020 Urine Protein NEGATIVE Urine Glucose (UA) NEGATIVE Urine Ketones NEGATIVE Urine Blood NEGATIVE Urine Nitrite NEGATIVE Ur Leukocyte Esterase TRACE H Blood Type O POSITIVE Antibody Screen NEGATIVE 09/25/19 06:57 WBC 10.2 RBC 3.20 L Hgb 8.9 L Hct 26.3 L MCV 82 MCH 27.9 MCHC 34.0 RDW 14.4 H Plt Count 193 Seg Neutrophils % Urine Color Urine Appearance Urine pH Ur Specific [place] Urine Protein Urine Glucose (UA) Urine Ketones Urine Blood Urine Nitrite Ur Leukocyte Esterase Blood Type Antibody Screen Assessment and Plan(PN) - Assessment and Plan (1) Vaginal delivery Is this a current diagnosis for this admission?: Yes (2) Spontaneous rupture of amniotic membranes Is this a current diagnosis for this admission?: Yes (3) Bipolar 1 disorder, depressed Is this a current diagnosis for this admission?: Yes (4) Marijuana abuse Is this a current diagnosis for this admission?: Yes (5) Psychosocial stressors Is this a current diagnosis for this admission?: Yes - Time Spent with Patient Time with patient: Less than 15 minutes Medications reviewed and adjusted accordingly: Yes - Disposition Anticipated Discharge: Home Within: within 24 hours
[2019-09-26 02:36] LABS: HEPATITIS C VIRUS AB <0.1 s/co ratio (0.0-0.9)
[2019-09-26] MEDS: ACETAMINOPHEN WITH CODEINE #3 TABLET PO PRN ×2 (05:21→12:46)
[2019-09-26] MEDS: IBUPROFEN 800 MG TABLET PO SCH (05:31)
--- NOTE | 2019-09-26 10:12 | PDOC DISCHARGE SUMMARY ---
Impression - Admit/DC Date/PCP Admission Date/Primary Care Provider: 09/24/19 18:51 KERI NAIR MD Discharge Date: 09/26/19 - Discharge Diagnosis (1) Vaginal delivery Is this a current diagnosis for this admission?: Yes (2) Spontaneous rupture of amniotic membranes Is this a current diagnosis for this admission?: Yes (3) Bipolar 1 disorder, depressed Is this a current diagnosis for this admission?: Yes (4) Marijuana abuse Is this a current diagnosis for this admission?: Yes (5) Psychosocial stressors Is this a current diagnosis for this admission?: Yes - Additional Information Resuscitation Status: Full Code Discharge Diet: Regular Discharge Activity: Balance Activity w/Rest, Pelvic Rest Referrals: KERI NAIR MD [Primary Care Provider] - Prescriptions: Ibuprofen [Motrin 800 mg Tablet] 800 mg PO Q8HP PRN #60 tablet PRN Reason: Home Medications: Vit/Iron Fum/Folic AC [ Tablet] 1 tab PO DAILY 02/24/17 Ibuprofen [Motrin 800 mg Tablet] 800 mg PO Q8HP PRN #60 tablet 09/26/19 Results Laboratory Results: WBC 10.2 10^3/uL (4.0-10.5) 09/25/19 06:57 RBC 3.20 10^6/uL (3.72-5.28) L 09/25/19 06:57 Hgb 8.9 g/dL (12.0-15.5) L 09/25/19 06:57 Hct 26.3 % (36.0-47.0) L 09/25/19 06:57 MCV 82 fl (80-97) 09/25/19 06:57 MCH 27.9 pg (27.0-33.4) 09/25/19 06:57 MCHC 34.0 g/dL (32.0-36.0) 09/25/19 06:57 RDW 14.4 % (11.5-14.0) H 09/25/19 06:57 Plt Count 193 10^3/uL (150-450) 09/25/19 06:57 Lymph % (Auto) 27.9 % (13-45) 09/24/19 19:22 [place] % (Auto) 6.5 % (3-13) 09/24/19 19:22 Eos % (Auto) 3.4 % (0-6) 09/24/19 19:22 Baso % (Auto) 0.5 % (0-2) 09/24/19 19:22 Absolute Neuts (auto) 6.9 10^3/uL (1.7-8.2) 09/24/19 19:22 Absolute Lymphs (auto) 3.1 10^3/uL (0.5-4.7) 09/24/19 19:22 Absolute Monos (auto) 0.7 10^3/uL (0.1-1.4) 09/24/19 19:22 Absolute Eos (auto) 0.4 10^3/uL (0.0-0.6) 09/24/19 19:22 Absolute Basos (auto) 0.1 10^3/uL (0.0-0.2) 09/24/19 19:22 Seg Neutrophils % 61.7 % (42-78) 09/24/19 19:22 Urine Color YELLOW 09/24/19 17:47 Urine Appearance SLIGHTLY-CLOUDY 09/24/19 17:47 Urine pH 6.0 (5.0-9.0) 09/24/19 17:47 Ur Specific [place] 1.020 09/24/19 17:47 Urine Protein NEGATIVE mg/dL (NEGATIVE) 09/24/19 17:47 Urine Glucose (UA) NEGATIVE mg/dL (NEGATIVE) 09/24/19 17:47 Urine Ketones NEGATIVE mg/dL (NEGATIVE) 09/24/19 17:47 Urine Blood NEGATIVE (NEGATIVE) 09/24/19 17:47 Urine Nitrite NEGATIVE (NEGATIVE) 09/24/19 17:47 Urine Bilirubin NEGATIVE (NEGATIVE) 09/24/19 17:47 Urine Urobilinogen NEGATIVE mg/dL (<2.0) 09/24/19 17:47 Ur Leukocyte Esterase TRACE (NEGATIVE) H 09/24/19 17:47 Urine Ascorbic Acid NEGATIVE (NEGATIVE) 09/24/19 17:47 Urine Opiates Screen NEGATIVE 09/24/19 17:47 Urine Methadone Screen NEGATIVE 09/24/19 17:47 Ur Barbiturates Screen NEGATIVE 09/24/19 17:47 Ur Phencyclidine Scrn NEGATIVE 09/24/19 17:47 Ur Amphetamines Screen NEGATIVE 09/24/19 17:47 U Benzodiazepines Scrn NEGATIVE 09/24/19 17:47 Urine Cocaine Screen NEGATIVE 09/24/19 17:47 U Marijuana (THC) Screen NEGATIVE 09/24/19 17:47 RPR NONREACTIVE (NONREACTIVE) 09/24/19 19:22 HIV 1&2 Antibody NEGATIVE (NEGATIVE) 09/24/19 19:22 Blood Type O POSITIVE 09/24/19 19:22 Antibody Screen NEGATIVE 09/24/19 19:22
[2019-09-26] MEDS: DOCUSATE SODIUM 100 MG CAPSULE PO SCH (10:43)
[2019-09-26] MEDS: FERROUS SULFATE 325 MG TABLET PO SCH (10:43)
[2019-09-26] MEDS: PRENATAL VITAMIN W DHA CAPSULE PO SCH (10:44)
[2019-09-26] MEDS: FAMOTIDINE 20 MG TABLET PO SCH (10:44)
[2019-09-26] MEDS: SENNOSIDES/DOCUSATE 8.6-50 MG 1 EACH TABLET PO SCH (10:44)
[2019-09-26 12:08] VITALS: BP 112/80
== END 2019-09-26 13:00 | disposition home or self-care (01) | DRG 806 ==
LOC: LC 17:40 → LR 18:51 → 2S 09-25 00:13
PROVIDERS: ADMIT Student in an Organized Health Care Education/Training Program; ATTEND Student in an Organized Health Care Education/Training Program
PROC: 10E0XZZ Delivery of Products of Conception, External Approach (ICD-10-PCS; principal; 2019-09-24)
DX: O69.1XX0 Labor and delivery complicated by cord around neck, with compression, not applicable or unspecified (principal); O99.324 Drug use complicating childbirth; Z37.0 Single live birth; O24.420 Gestational diabetes mellitus in childbirth, diet controlled; O99.334 Smoking (tobacco) complicating childbirth; F17.210 Nicotine dependence, cigarettes, uncomplicated; F41.8 Other specified anxiety disorders; F12.10 Cannabis abuse, uncomplicated; Z3A.39 39 weeks gestation of pregnancy
CPT/HCPCS: 36415; 59025; 80307; 81005; 85025; 85027; 86592; 86701; 86803; 86804; 86850; 86900; 86901; J2370; J2590; J3010; J3490

== ENCOUNTER 2020-03-09 17:09 | Emergency (ER) | payer MEDICAID ==
--- NOTE | 2020-03-09 17:38 | ER Document Report ---
ED Medical Screen (RME) - General Chief Complaint: Abdominal Pain Stated Complaint: ABDOMINAL PAIN/PAINFUL URINATION Time Seen by Provider: 03/09/20 17:20 Primary Care Provider: KERI NAIR MD [Primary Care Provider] - Follow up as needed TRAVEL OUTSIDE OF THE [place] IN LAST 30 DAYS: No - HPI Notes: 03/09/20 17:32 25-year-old female 6 para 6 presents emergency room for vaginal discharge and pelvic pain that has been problematic over the last month but worse over the last few days. Reports intermittent odor with vaginal discharge. Pain comes and goes. Last menstrual cycle was approximately 1 week ago and she states she also had another menstrual cycle 2 weeks prior. Has been with the same sexual partner but would like to get checked for STDs in case "my cheating on me". denies fevers, chills, n/v/d, abd pain, URI s/s. I have greeted and performed a rapid initial assessment of this patient. A comprehensive ED assessment and evaluation of the patient, analysis of test results and completion of the medical decision making process will be conducted by additional ED providers. PHYSICAL EXAMINATION: GENERAL: Well-appearing, well-nourished and in no acute distress. CV: s1, s2 regular exam: External genitalia without erythema, exudate or discharge. Vaginal vault is without discharge. Cervix is of normal color without lesion. Uterus is noted to be of normal size and nontender. No cervical motion tenderness is seen. No masses are palpated. No blood in the vaginal vault without clots, os closed, no adnexal tenderness or mass LUNGS: No respiratory distress 03/09/20 17:51 - Related Data Allergies/Adverse Reactions: quetiapine fumarate [From Seroquel] Allergy (Intermediate, Verified 09/25/19 00:42) Nausea Penicillins Adverse Reaction (Intermediate, Verified 09/24/19 17:49) STRAWBERRIES Allergy (Mild, Uncoded 09/25/19 00:42) Rash Past Medical History - Social History Chew tobacco use (# tins/day): No Frequency of alcohol use: Occasional Drug Abuse: None Renal/ Medical History: Denies: Hx Peritoneal Dialysis Musculoskeltal Medical History: Reports Hx Arthritis Psychiatric Medical History: Reports: Hx Bipolar Disorder, Hx Depression - Immunizations Immunizations up to date: Yes Hx Diphtheria, Pertussis, Tetanus Vaccination: Yes Physical Exam - Vital signs Vitals: Temp Pulse Resp BP Pulse Ox 97.9 F 83 14 119/80 100 03/09/20 17:13 03/09/20 17:13 03/09/20 17:13 03/09/20 17:13 03/09/20 17:13 Course - Vital Signs Vital signs: Temp Pulse Resp BP Pulse Ox 97.9 F 83 14 119/80 100 03/09/20 17:13 03/09/20 17:13 03/09/20 17:13 03/09/20 17:13 03/09/20 17:13 Doctor's Discharge - Discharge Referrals: KERI NAIR MD [Primary Care Provider] - Follow up as needed
[2020-03-09 18:05] LABS: ABSOLUTE EOSINOPHILS # (AUTO) 0.4 10^3/uL (0.0-0.6); ABSOLUTE LYMPHOCYTES (AUTO) 2.2 10^3/uL (0.5-4.7); ABSOLUTE MONOCYTES (AUTO) 0.4 10^3/uL (0.1-1.4); ABSOLUTE NEUT (AUTO) 3.5 10^3/uL (1.7-8.2); BASOPHILS % (AUTO) 0.7 % (0-2); EOSINOPHILS % (AUTO) 6.1 % (0-6); HEMATOCRIT 34.3 % (36.0-47.0); HEMOGLOBIN 11.9 g/dL (12.0-15.5); MEAN CORPUSCULAR HEMOGLOBIN 28.7 pg (27.0-33.4); MEAN CORPUSCULAR HGB CONC 34.7 g/dL (32.0-36.0); MEAN CORPUSCULAR VOLUME 83 fl (80-97); MONOCYTES % (AUTO) 6.4 % (3-13); PLATELET COUNT 288 10^3/uL (150-450); RED BLOOD COUNT 4.15 10^6/uL (3.72-5.28); RED CELL DISTRIBUTION WIDTH 16.8 % (11.5-14.0); SEGMENTED NEUTROPHILS % (AUTO) 53.8 % (42-78); TOTAL CELLS COUNTED % (AUTO) 100 %; WHITE BLOOD COUNT 6.5 10^3/uL (4.0-10.5)
[2020-03-09 18:13] LABS: APPEARANCE,URINE CLOUDY; BILIRUBIN,URINE NEGATIVE (NEGATIVE); COLOR,URINE YELLOW; GLUCOSE, URINE NEGATIVE (NEGATIVE); KETONES,URINE NEGATIVE (NEGATIVE); LEUKOCYTE ESTERASE,URINE NEGATIVE (NEGATIVE); NITRITE,URINE NEGATIVE (NEGATIVE); PROTEIN,URINE NEGATIVE (NEGATIVE); URINE SPECIFIC GRAVITY 1.027; UROBILINOGEN,URINE NEGATIVE mg/dL (<2.0)
[2020-03-09 18:20] LABS: ALBUMIN 4.1 g/dL (3.5-5.0); ALKALINE PHOSPHATASE 91 U/L (38-126); ASPARTATE AMINO TRANSFERASE 22 U/L (14-36); BILIRUBIN,TOTAL 0.3 mg/dL (0.2-1.3); BLOOD UREA NITROGEN 11 mg/dL (7-20); CALCIUM 9.2 mg/dL (8.4-10.2); CARBON DIOXIDE 25 mmol/L (22-30); GLUCOSE 101 mg/dL (75-110); POTASSIUM 4.1 mmol/L (3.6-5.0); TOTAL PROTEIN 6.7 g/dL (6.3-8.2)
[2020-03-09 18:25] LABS: CHLORIDE 108 mmol/L (98-107)
[2020-03-09 18:26] LABS: ANION GAP 6 (5-19)
[2020-03-09 18:30] LABS: BACTERIA (WET MOUNT) 4+ BACTERIA SEEN; RBCS (WET MOUNT) 1+ RBCS SEEN; T.VAGINALIS (WET MOUNT) NO TRICHOMONAS SEEN; WBCS (WET MOUNT) 2+ WBCS SEEN; YEAST (WET MOUNT) NO YEAST SEEN
[2020-03-09 18:31] LABS: EPITHELIALS (WET MOUNT) 3+ EPITHELIALS SEEN
--- NOTE | 2020-03-09 18:41 | RADIOLOGY REPORT (SQ) ---
EXAM DESCRIPTION: U/S NON OB PEL TV W/DOPPLER IMAGES COMPLETED DATE/TIME: 03/09/2020 6:31 pm REASON FOR STUDY: pelvic pain COMPARISON: None. TECHNIQUE: Dynamic and static grayscale images acquired of the pelvis via transvaginal approach and recorded on PACS. Additional selected color Doppler and spectral images recorded. LIMITATIONS: None. FINDINGS: UTERUS: Heterogeneous. Likely adenomyosis. ENDOMETRIAL STRIPE: No focal or generalized thickening. No masses. CERVIX: No nabothian cysts. RIGHT OVARY AND DOPPLER: Normal size. No worrisome masses. Normal arterial vascular flow without evid ence for torsion. Multiple normal follicles. LEFT OVARY AND DOPPLER: Normal size. No worrisome masses. Normal arterial vascular flow without evide nce for torsion. Multiple normal follicles. FREE FLUID: Mild free fluid. OTHER: No other significant finding. MEASUREMENTS: UTERUS: 7.9 cm ENDOMETRIAL STRIPE: 8 mm RIGHT OVARY: 3.4 cm LEFT OVARY: 4.6 cm IMPRESSION: Likely adenomyosis of the uterus. Otherwise normal study. TECHNICAL DOCUMENTATION: JOB ID: [id number] [employer]- All Rights Reserved Rev-04/10 Reading location - IP/workstation name: [email or web address]
[2020-03-09] MEDS ORDERED: METRONIDAZOLE 500 MG TABLET PO ONE (18:53)
--- NOTE | 2020-03-09 18:55 | ER Document Report ---
ED GI/ - General Chief Complaint: Abdominal Pain Stated Complaint: ABDOMINAL PAIN/PAINFUL URINATION Time Seen by Provider: 03/09/20 17:20 Primary Care Provider: KERI NAIR MD [ACTIVE STAFF] - Follow up as needed Notes: CHIEF COMPLAINT: Vaginal discharge for 1 month HPI: 25-year-old female presenting to the emergency department complaining of vaginal discharge and odor over the last month. Patient was not sure whether it might be vaginitis which she has had 3 or 4 times already or whether she might have an STD because her may have cheated on her. Denies acute pelvic cramping denies dysuria denies fever denies back pain. ROS: See HPI - all other systems were reviewed and are otherwise negative Constitutional: no fever GI: no vomiting, no diarrhea, no abdominal pain : no dysuria, positive vaginal discharge Integumentary: no rash Allergy: no hives MEDICATIONS: I agree with the patient medications as charted by the RN. ALLERGIES: I agree with the allergies as charted by the RN. PAST MEDICAL HISTORY/PAST SURGICAL HISTORY: Reviewed and agree as charted by RN. SOCIAL HISTORY: Reviewed and agree as charted by RN. FAMILY HISTORY: No significant familial comorbid conditions directly related to patient complaint EXAM: Reviewed vital signs as charted by RN. CONSTITUTIONAL: Alert and oriented and responds appropriately to questions. Well-appearing; well-nourished HEAD: Normocephalic; atraumatic EYES: Conjunctivae clear, sclerae non-icteric ENT: normal nose; no rhinorrhea; moist mucous membranes NECK: Supple without meningismus CARD: symmetric distal pulses RESP: Normal chest excursion without splinting or tachypnea ABD/GI: Normal bowel sounds; non-distended; soft, non-tender, no rebound, no guarding; no palpable organomegaly or masses. : Deferred at this time was performed by triage provider BACK: The back appears normal and is non-tender to palpation, there is no CVA tenderness EXT: Normal ROM in all joints; no cyanosis, no effusions, no edema SKIN: Normal color for age and race; warm; dry; good turgor; no acute lesions noted NEURO: Moves all extremities equally; Motor and sensory function intact PSYCH: The patient's mood and manner are appropriate. Grooming and personal hygiene are appropriate. MDM: 25-year-old female with vaginal discharge for 1 month. Appears to have vaginitis. Will place her on Flagyl. GC chlamydia are pending TRAVEL OUTSIDE OF THE [place] IN LAST 30 DAYS: No - Related Data Allergies/Adverse Reactions: quetiapine fumarate [From Seroquel] Allergy (Intermediate, Verified 09/25/19 00:42) Nausea Penicillins Adverse Reaction (Intermediate, Verified 09/24/19 17:49) STRAWBERRIES Allergy (Mild, Uncoded 09/25/19 00:42) Rash Past Medical History - Social History Smoking Status: Current Some Day Smoker Chew tobacco use (# tins/day): No Frequency of alcohol use: Occasional Drug Abuse: None Family History: Reviewed & Not Pertinent Patient has suicidal ideation: No Patient has homicidal ideation: No Renal/ Medical History: Denies: Hx Peritoneal Dialysis Musculoskeletal Medical History: Reports Hx Arthritis Psychiatric Medical History: Reports: Hx Bipolar Disorder, Hx Depression - Immunizations Immunizations up to date: Yes Hx Diphtheria, Pertussis, Tetanus Vaccination: Yes Physical Exam - Vital signs Vitals: Temp Pulse Resp BP Pulse Ox 97.9 F 83 14 119/80 100 03/09/20 17:13 03/09/20 17:13 03/09/20 17:13 03/09/20 17:13 03/09/20 17:13 Course - Vital Signs Vital signs: Temp Pulse Resp BP Pulse Ox 97.9 F 83 14 119/80 100 03/09/20 17:13 03/09/20 17:13 03/09/20 17:13 03/09/20 17:13 03/09/20 17:13 - Laboratory Result Diagrams: 03/09/20 17:36 03/09/20 17:36 Laboratory results interpreted by me: 03/09/20 17:36 Chloride 108 H Discharge - Discharge Clinical Impression: Vaginitis Qualifiers: Chronicity: acute Qualified Code(s): N76.0 - Acute vaginitis Condition: Stable Disposition: HOME, SELF-CARE Additional Instructions: Take the Flagyl as prescribed. Follow-up with your [facility] for further evaluation and treatment call for appointment. Your vaginal cultures are still pending if any are positive you will receive a call from the follow-up nurse. No sexual intercourse for 10 days. If any of your cultures are positive you will need to notify your sexual partner Prescriptions: Metronidazole [Flagyl 500 mg Tablet] 500 mg PO BID #14 tablet Referrals: KERI NAIR MD [ACTIVE STAFF] - Follow up as needed
[2020-03-09 19:05] VITALS: BP 118/78
[2020-03-09 20:03] LABS: CHLAM PCR NOT DETECTED (NOT DETECT)
== END 2020-03-09 19:04 | disposition home or self-care (01) ==
LOC: ER 17:09
DX: N76.0 Acute vaginitis (principal); R10.9 Unspecified abdominal pain; R30.9 Painful micturition, unspecified; Z20.2 Contact with and (suspected) exposure to infections with a predominantly sexual mode of transmission; Z88.0 Allergy status to penicillin; Z88.8 Allergy status to other drugs, medicaments and biological substances; F17.200 Nicotine dependence, unspecified, uncomplicated
CPT/HCPCS: 99284; 36415; 87210; 85025; 81025; 80053; 81001; 87491; 87591; 76830; 93976; J3490

== ENCOUNTER 2020-06-20 20:58 | Inpatient (IN) | payer MEDICAID ==
[2020-06-20] MEDS ORDERED: DEXTROSE 5%-WATER 250 ML with EPINEPHRINE/PF 1 MG IV PRN ×4 (21:15→21:24)
[2020-06-20] MEDS ORDERED: FENTANYL CITRATE INJ/PF 100 MCG/2 ML AMPUL IV ONE (21:19)
[2020-06-20] MEDS ORDERED: PANTOPRAZOLE SODIUM 40 MG VIAL IV PRN (21:22)
[2020-06-20] MEDS ORDERED: PANTOPRAZOLE SODIUM 40 MG VIAL IV ONE (21:22)
[2020-06-20] MEDS ORDERED: VANCOMYCIN HCL INJ 1000 MG VIAL IV ONE (21:23)
[2020-06-20] MEDS ORDERED: AZITHROMYCIN INJ 500 MG VIAL IV ONE (21:23)
[2020-06-20] MEDS ORDERED: CEFEPIME 2 GM/D5W RTU 2 GM/50 ML RTUPB IV ONE (21:23)
[2020-06-20] MEDS ORDERED: MIDAZOLAM HCL 50 MG/100 ML RTUINJ IV PRN (21:26)
[2020-06-20] MEDS ORDERED: MIDAZOLAM 2 MG/2 ML INJ IV ONE (21:31)
--- NOTE | 2020-06-20 21:38 | ER Document Report ---
ED General - General Stated Complaint: UNRESPONSIVE TRAVEL OUTSIDE OF THE [place] IN LAST 30 DAYS: No - HPI Notes: 25-year-old female history of distant methamphetamine use as per with no known recent use presents with cardiac arrest. says that patient was "not feeling well "for past few days, has been vomiting in the mornings, and had one episode of vomiting before she arrived to ED with bright red blood. He has not noticed any other specific symptoms. Denies patient has been had any other medical problems recently, gave 9 months ago. History limited by patient acuity. - Related Data Allergies/Adverse Reactions: quetiapine fumarate [From Seroquel] Allergy (Intermediate, Verified 09/25/19 00:42) Nausea Penicillins Adverse Reaction (Intermediate, Verified 09/24/19 17:49) STRAWBERRIES Allergy (Mild, Uncoded 09/25/19 00:42) Rash Past Medical History - General Information source: Relative - Social History Smoking Status: Unknown if Ever Smoked Family History: None Renal/ Medical History: Denies: Hx Peritoneal Dialysis Musculoskeletal Medical History: Reports Hx Arthritis Psychiatric Medical History: Reports: Hx Bipolar Disorder, Hx Depression - Immunizations Immunizations up to date: Yes Hx Diphtheria, Pertussis, Tetanus Vaccination: Yes Review of Systems - Review of Systems -: Yes ROS unobtainable due to patient's medical condition Physical Exam - Vital signs Vitals: Resp Pulse Ox 26 H 100 06/20/20 20:59 06/20/20 20:59 PHYSICAL EXAMINATION: GENERAL: Unresponsive pulseless and young adult female with active chest compressions HEAD: Atraumatic, normocephalic. EYES: Pupils dilated equal and reactive, normal conjunctivae ENT: nares patent, moist mucous membranes. NECK: No deformity, normal inspection LUNGS: Bagged with BVM with bilateral breath sounds, no spontaneous breaths HEART: Pulseless, cardiac activity present on bedside ultrasound ABDOMEN: Soft, no masses EXTREMITIES: No pitting or edema, cyanotic NEUROLOGICAL: Pupils reactive, patient with spontaneous nonpurposeful movement after ROSC and biting tube SKIN: Pale and cool Course - Re-evaluation Re-evalutation: 06/20/20 21:50 Patient arrived to ED in personal vehicle brought by . Upon arrival to ED patient noted to be unresponsive and pulseless and was brought in wheelchair from ED entrance into trauma to. Chest compressions were immediately started and ACLS was started. Patient given several rounds of epinephrine, magnesium, calcium chloride, several amps of bicarb, amiodarone, and was defibrillated once at 200 J when 1 of her rhythm checks showed a wide-complex tachycardia, otherwise rhythm was PEA every rhythm check. Patient was intubated during rhythm check approximately 6 minutes and with first-pass success confirmed by end-tidal and breath sounds. Obtained ROSC and started patient on epi drip and obtain EKG that showed no STEMI and with narrow complex and started patient on fluids antibiotics and GI bleed precautions. Spoke to and updated him as to patient's status. Patient accepted to ICU and pending transfer now. Post intubation chest x-ray showed ET tube tip high so asked respiratory therapist to advance tube 2 cm. - Vital Signs Vital signs: Temp Pulse Resp BP Pulse Ox 95.2 F L 113 H 24 H 73/46 L 100 06/21/20 02:00 06/20/20 22:16 06/21/20 02:00 06/20/20 22:45 06/20/20 22:16 - Laboratory Result Diagrams: 06/20/20 20:50 06/20/20 23:41 Laboratory results interpreted by me: 06/20/20 06/20/20 06/20/20 20:50 20:50 20:50 WBC 12.7 H MCHC 30.8 L RDW 17.8 H Plt Count 34 L Seg Neuts % (Manual) 88 H Lymphocytes % (Manual) 6 L Abs Neuts (Manual) 11.2 H PT INR APTT Fibrinogen D-Dimer CK-MB (CK-2) 10.90 H NT-Pro-B Natriuret Pep 966 H Urine Protein 100 H Urine Blood MODERATE H Urine Bilirubin SMALL H Urine Urobilinogen 4.0 H Crossmatch 06/20/20 06/20/20 20:50 21:52 WBC MCHC RDW Plt Count Seg Neuts % (Manual) Lymphocytes % (Manual) Abs Neuts (Manual) PT 118.2 H* INR 15.48 H* APTT 76.7 H Fibrinogen < 60 L* D-Dimer > 20.00 H* CK-MB (CK-2) NT-Pro-B Natriuret Pep Urine Protein Urine Blood Urine Bilirubin Urine Urobilinogen Crossmatch See Detail - EKG Interpretation by Me Additional EKG results interpreted by me: 06/20/20 21:57 EKG obtained at 21:19:16 under name CODEBLUE did not crossover to system, heart rate 115, sinus tachycardia with first-degree AV block, isolated ST elevation in V2, no reciprocal depressions, QTC 404 Procedures - Intubation Orotracheal Time of Intubation: 21:09 Airway evaluation: Copious secretions Intubation method: Orotracheal Blade type: Mike Blade size: 4 Equipment used: Glidescope ETT secured at: Lips ETT secured at (cm): 24 Breath Sounds after Intubation: Equal End tidal CO2 confirmed: Yes Intubation Complications: No complications Critical Care Note - Critical Care Note Total time excluding time spent on procedures (mins): 60 - Spent time obtaining additional history, performing ACLS, resuscitating cardiac arrest patient after ROSC. Discharge - Discharge Clinical Impression: Cardiac arrest Disposition: ADMITTED INPATIENT Unit Admitted: ICU
[2020-06-20] MEDS ORDERED: DEXTROSE 50%-WATER 25 GM/50 ML DISP.SYRIN IV ONE (21:40)
--- NOTE | 2020-06-20 22:02 | RADIOLOGY REPORT (SQ) ---
EXAM DESCRIPTION: XR CHEST 1 VIEW COMPLETED DATE/TME: 06/20/2020 21:21 CLINICAL HISTORY: 25 years, Female, fever COMPARISON: None. NUMBER OF VIEWS: TECHNIQUE: LIMITATIONS: None. FINDINGS: There is hazy infiltrate in the mid to lower lung bilaterally, right side more apparent than left, compatible with pneumonia. No evidence of pleural effusion. The heart and mediastinum are unremarkable. Pulmonary vascularity appears normal. The tip of the endotracheal tube is 7.9 cm above the michelle. There is a large amount of air in the stomach. IMPRESSION: Bilateral pneumonia. Large amount of air in the stomach. copyright 2010 [employer]- All Rights Reserved
[2020-06-20] MEDS ORDERED: NOREPINEPHRINE BITARTRATE INJ/PF 4 MG/4 ML SDV IV ONE (22:08)
[2020-06-20] MEDS ORDERED: MIDAZOLAM 2 MG/2 ML INJ ONE (22:10)
[2020-06-20] MEDS: DEXTROSE 5%-WATER 250 ML with NOREPINEPHRINE BITARTRATE 4 MG IV PRN ×2 (22:22)
[2020-06-20] MEDS: SODIUM BICARBONATE 8.4% INJ 50 MEQ/50 ML DISP.SYRIN IV PRN ×5 (22:40→23:31)
[2020-06-20 23:10] LABS: HEMATOCRIT 38.9 % (36.0-47.0); MEAN CORPUSCULAR HGB CONC 30.8 g/dL (32.0-36.0); MEAN CORPUSCULAR VOLUME 91 fl (80-97); RED BLOOD COUNT 4.29 10^6/uL (3.72-5.28); RED CELL DISTRIBUTION WIDTH 17.8 % (11.5-14.0); WHITE BLOOD COUNT 12.7 10^3/uL (4.0-10.5)
[2020-06-20] MEDS ORDERED: SODIUM BICARBONATE 8.4% INJ 50 MEQ/50 ML DISP.SYRIN ONE ×4 (23:12→23:31)
[2020-06-20 23:15] LABS: APPEARANCE,URINE CLOUDY; BILIRUBIN,URINE SMALL (NEGATIVE); COLOR,URINE AMBER; GLUCOSE, URINE NEGATIVE (NEGATIVE); KETONES,URINE NEGATIVE (NEGATIVE); PROTEIN,URINE 100 mg/dL (NEGATIVE); URINE SPECIFIC GRAVITY 1.019
[2020-06-20] MEDS ORDERED: EPINEPHRINE INJ/PF 1 MG/1 ML AMPULE ONE (23:15)
[2020-06-20 23:18] LABS: PARTIAL THROMBOPLASTIN TIME 76.7 SEC (23.5-35.8)
[2020-06-20] MEDS ORDERED: NORMAL SALINE 250 ML IV PRN ×4 (23:23→23:33)
[2020-06-20] MEDS ORDERED: DEXTROSE 5%-WATER 1000 ML 1,000 ML with SODIUM BICARBONATE 150 MEQ IV PRN ×2 (23:29)
[2020-06-20] MEDS ORDERED: EPINEPHRINE INJ 1 MG/10 ML DISP.SYRIN ONE (23:29)
[2020-06-20 23:31] LABS: ARTERIAL BLOOD BASE EXCESS -27.4 mmol/L; ARTERIAL BLOOD H2CO3 1.41 mmol/L (1.05-1.35); ARTERIAL BLOOD HCO3 6.9 mmol/L (20-24); ARTERIAL BLOOD O2 SATURATION 96.1 % (94-98); ARTERIAL BLOOD PCO2 46.7 mmHg (35-45); ARTERIAL BLOOD PO2 148.8 mmHg (80-100); ARTERIAL BLOOD TOTAL CO2 8.4 mmol/L (21-25)
[2020-06-20 23:35] LABS: ABSOLUTE LYMPHOCYTES# (MANUAL) 0.8 10^3/uL (0.5-4.7); ABSOLUTE MONOCYTES # (MANUAL) 0.8 10^3/uL (0.1-1.4); BASOPHILS % (MANUAL) 0 % (0-2); EOSINOPHILS % (MANUAL) 0 % (0-6); LYMPHOCYTES % (MANUAL) 6 % (13-45); MONOCYTES % (MANUAL) 6 % (3-13); SEGMENTED NEUTROPHILS % (MAN) 88 % (42-78); TOTAL CELLS COUNTED 100
[2020-06-20 23:36] LABS: ARTERIAL BLOOD FIO2 100%
[2020-06-20 23:37] LABS: ARTERIAL BLOOD PH 6.79 (7.35-7.45)
[2020-06-20 23:38] LABS: ANISOCYTOSIS 1+; BURR CELLS 1+; OVALOCYTES SLIGHT; PLATELET COMMENT DECREASED; POIKILOCYTOSIS SLIGHT; POLYCHROMASIA SLIGHT; SCHISTOCYTES SLIGHT; TOXIC GRANULATION SLIGHT; TOXIC VACUOLATION PRESENT
[2020-06-20 23:39] LABS: PLATELET COUNT 34 10^3/uL (150-450)
--- NOTE | 2020-06-20 23:41 | RADIOLOGY REPORT (SQ) ---
XR CHEST 1 VIEW HISTORY: TLC placement. COMPARISON: Radiographs from earlier the same day. FINDINGS: The endotracheal tube is 3.5 cm from the michelle. The right central venous line terminates in the SVC. There is interval worsening of bilateral patchy airspace opacities. No pleural effusions or pneumothorax. Stable heart size. IMPRESSION: 1. Support devices in anatomic position. 2. Interval worsening of bilateral airspace disease.
[2020-06-20 23:50] LABS: FIBRINOGEN < 60 mg/dL (209-497)
[2020-06-20 23:52] LABS: D-DIMER > 20.00 ug/mL (0.00-0.50)
[2020-06-20 23:56] LABS: URINE BARBITURATES SCREEN NEGATIVE; URINE BENZODIAZEPINES SCREEN NEGATIVE; URINE COCAINE SCREEN NEGATIVE; URINE METHADONE SCREEN NEGATIVE; URINE PHENCYCLIDINE SCREEN NEGATIVE
[2020-06-21 00:02] LABS: PROTHROMBIN TIME 118.2 SEC (11.4-15.4)
[2020-06-21] MEDS ORDERED: EPINEPHRINE INJ/PF 1 MG/1 ML AMPULE ONE ×4 (00:05→03:41)
[2020-06-21 00:06] LABS: URINE MARIJUANA (THC) SCREEN UNCONFIRMED POSITIVE
[2020-06-21] MEDS: SODIUM BICARBONATE 8.4% INJ 50 MEQ/50 ML DISP.SYRIN IV PRN ×7 (00:06→01:31)
[2020-06-21] MEDS ORDERED: SODIUM BICARBONATE 8.4% INJ 50 MEQ/50 ML DISP.SYRIN ONE ×10 (00:06→12:25)
[2020-06-21 00:09] LABS: ALCOHOL 10 mg/dL (NONE DETECTED); SALICYLATE 1.5 mg/dL (2.0-20.0)
[2020-06-21] MEDS ORDERED: VASOPRESSIN INJ 20 UNIT/1 ML VIAL ONE (00:09)
[2020-06-21] MEDS ORDERED: NORMAL SALINE 250 ML IV PRN ×2 (00:09)
[2020-06-21 00:10] LABS: ALBUMIN 1.7 g/dL (3.5-5.0); ALKALINE PHOSPHATASE 76 U/L (38-126); BILIRUBIN,DIRECT 1.4 mg/dL (0.0-0.4); BILIRUBIN,TOTAL 2.1 mg/dL (0.2-1.3); BLOOD UREA NITROGEN 24 mg/dL (7-20); GLUCOSE 223 mg/dL (75-110); POTASSIUM 5.1 mmol/L (3.6-5.0); TOTAL PROTEIN 3.3 g/dL (6.3-8.2)
[2020-06-21 00:15] LABS: CREATINE KINASE MB 10.9 ng/mL (<4.55); TROPONIN I 0.06 ng/mL
[2020-06-21 00:17] LABS: ACETAMINOPHEN < 10 ug/mL (10-30); CARBON DIOXIDE 11 mmol/L (22-30); CHLORIDE 102 mmol/L (98-107); PHOSPHORUS 15.5 mg/dL (2.5-4.5)
[2020-06-21] MEDS ORDERED: DEXTROSE 5%-WATER 250 ML with VASOPRESSIN 100 UNIT IV PRN ×2 (00:22)
[2020-06-21 00:28] LABS: INTERNATIONAL RATION (INR) 15.48
[2020-06-21] MEDS ORDERED: NOREPINEPHRINE BITARTRATE INJ/PF 4 MG/4 ML SDV IV ONE ×2 (00:35→02:30)
--- NOTE | 2020-06-21 00:36 | RADIOLOGY REPORT (SQ) ---
EXAM DESCRIPTION: CT HEAD WITHOUT IV CONTRAST COMPLETED DATE/TME: 06/20/2020 21:22 CLINICAL INDICATION: 25-year-old female status post arrest. COMPARISON: None. TECHNIQUE: CT brain without contrast. This exam was performed according to our departmental dose optimization program which includes use of automated exposure control, adjustment of the mA and/or kV according to patient size and/or use of iterative reconstruction technique. FINDINGS: Motion and streak limited examination. Small volume of extra-axial increased density is identified at the level of the RIGHT frontal high convexity, (series 401, image 37) raising the possibility of trace subdural hematoma, versus cortical vein or thrombosed vein for which follow-up evaluation CT or MRI venogram may be considered. Evaluation through this location is limited secondary to severe streak artifact. There is diffuse paucity of the cerebral sulci, finding which may be within normal limits for the patient's age. The possibility of early cerebral edema cannot be completely excluded. Correlation with patient clinical status is recommended. There is preservation of the luque-white matter differentiation. The ventricles appear to be small bilaterally. There is no mass effect, midline shift, intra-axial fluid collection/acute hemorrhage. The osseous structures are unremarkable. The paranasal sinuses reveal air-fluid levels compatible with secretions within the bilateral maxillary sinuses and sphenoid sinus otherwise the remaining paranasal sinuses and mastoid air cells are clear. Incompletely visualized enteric and endotracheal tubes. IMPRESSION: 1. Small volume of extra-axial increased density is identified at the level of the RIGHT frontal high convexity, raising the possibility of trace subdural hematoma, versus cortical vein or thrombosed vein for which follow-up evaluation CT or MRI venogram may be considered. Evaluation through this location is limited secondary to severe streak artifact. 2. Diffuse paucity of the cerebral sulci, finding which may be within normal limits for the patient's however the possibility of early cerebral edema cannot be completely excluded. 3. CT is insensitive in the detection of early acute infarction. If there is clinical concern for acute ischemia, MRI is recommended.
--- NOTE | 2020-06-21 00:53 | RADIOLOGY REPORT (SQ) ---
EXAM DESCRIPTION: CT ABDOMEN PELVIS WITHOUT IV CONTRAST COMPLETED DATE/TME: 06/20/2020 00:00 CLINICAL INDICATION: 25-year-old female with bleeding. Status post arrest. COMPARISON: None. EXAMINATION: CT of the abdomen and pelvis was performed without intravenous or oral contrast. Multiplanar reformatted images were provided. This exam was performed according to our departmental dose optimization program which includes use of automated exposure control, adjustment of the mA and/or kV according to patient size and/or use of iterative reconstruction technique. FINDINGS: Evaluation of solid organ pathology is limited secondary to lack of intravenous contrast. Examination findings are further limited secondary to streak artifact secondary to patient arm positioning, metallic artifact from adjacent support wires and motion artifact. Within these limitations, the following observations are made. Chest: Evaluation through the lung bases reveals innumerable foci of patchy and confluent groundglass opacification throughout visualized lung parenchyma. More focal confluent consolidation is identified with air bronchograms within the lower lobes bilaterally. Differential considerations may include multifocal infectious process, edema, hemorrhage, drug induced lung injury and atypical/viral infectious process may be considered in the correct clinical setting. Imaging features are atypical or uncommonly reported for viral pneumonia. Alternative diagnoses should be considered. [PneAty] No pleural effusion or gross pneumothoraces. Interlobular septal thickening at the level of the bilateral lung bases, however a nonspecific finding, can be seen with edema. Trace volume of air is identified at the level of the RIGHT ventricle, a finding which may be secondary to iatrogenic introduction of air. Nonspecific tiny focus of 2 mm air lucency is identified within the precardiac fat of uncertain etiology, clinical significance. The possibility of air within a small vein may be considered, (series 3, image 11). Abdomen and pelvis: The liver, gallbladder, pancreas, spleen, bilateral kidneys and bilateral adrenal glands are within normal limits. Diffuse hypoattenuation of the liver and patible with diffuse hepatic steatosis. Increased density within the gallbladder lumen, a finding which can be seen with sludge and/or vicarious excretion of contrast if recently performed. Punctate focus of calcification present within the LEFT renal pelvis compatible with nonobstructing calculus. The vessels are normal in caliber. No abdominopelvic lymph nodes are noted to be pathologically enlarged by CT measurement criteria. Large volume of air present within a distended appearing fluid and air-filled stomach, finding which may be secondary to recent intubation. Multifocal dilated loops of small bowel are present within the proximal small bowel raising the possibility of distention following recent intubation. Small bowel air-filled loops are measured up to 3.4 cm in maximal diameter. Distally, the small bowel appears to be decompressed. No discrete transition point is identified, however differential considerations include early, incomplete small bowel obstruction and ileus. The large bowel is within normal limits without abnormal bowel wall thickness or bowel dilation. No free air. No free abdominopelvic fluid collections. The appendix is within normal limits. The osseous structures are within normal limits. Diffuse subcutaneous stranding is identified within the bilateral inguinal soft tissues compatible with recent instrumentation. LEFT femoral catheter is identified with a small volume of retroperitoneal air lucency. Small fluid collection and stranding surrounding the vascular insertion site of the catheter raising the possibility of fluid. Small hematoma cannot be excluded. IMPRESSION: 1. Innumerable foci of confluent and patchy groundglass and solid airspace opacification throughout the bilateral lungs with differential and details as above. 2. Small volume of air within the dependent RIGHT ventricle. 3. Diffuse hepatic steatosis. 4. Air and fluid distended stomach may be secondary to recent intubation. 5. Dilated loops of proximal small bowel with differential and details as above. 6. Diffuse stranding and possible fluid collection level of the vascular insertion of the LEFT femoral catheter. FILIPE Levine was notified by telephone of the critical findings on 06/20/2020 at 2345 hours.
[2020-06-21 01:04] LABS: ASPARTATE AMINO TRANSFERASE 14095 U/L (14-36)
[2020-06-21 01:05] LABS: ANION GAP 22 (5-19)
[2020-06-21 01:07] LABS: CALCIUM 4.6 mg/dL (8.4-10.2)
[2020-06-21] MEDS ORDERED: CALCIUM GLUC IN NACL, ISO-OSM 1 GM/50 ML RTUPB IV ONE (01:08)
[2020-06-21] MEDS ORDERED: CALCIUM GLUCONATE 1000 MG/10 ML INJ IV ONE ×3 (01:10→12:25)
[2020-06-21 01:28] LABS: ARTERIAL BLOOD BASE EXCESS -22.1 mmol/L; ARTERIAL BLOOD O2 SATURATION 69.1 % (94-98); ARTERIAL BLOOD PCO2 63.2 mmHg (35-45); ARTERIAL BLOOD PO2 61.4 mmHg (80-100)
[2020-06-21] MEDS ORDERED: CEFEPIME 2 GM/D5W RTU 2 GM/50 ML RTUPB IV ONE (01:30)
[2020-06-21] MEDS ORDERED: VANCOMYCIN HCL INJ 1000 MG VIAL IV ONE (01:30)
[2020-06-21 01:31] LABS: VENOUS BLOOD BASE EXCESS -21.4 mmol/L
[2020-06-21 01:48] LABS: VENOUS BLOOD PCO2 70.6 mmHg (35-63); VENOUS BLOOD PH 6.85 (7.30-7.42)
[2020-06-21 01:49] LABS: ARTERIAL BLOOD FIO2 100%; ARTERIAL BLOOD PH 6.86 (7.35-7.45)
[2020-06-21] MEDS ORDERED: MIDAZOLAM HCL 50 MG/100 ML RTUINJ IV PRN (02:12)
[2020-06-21] MEDS ORDERED: WATER IV PRN ×2 (02:17)
[2020-06-21] MEDS ORDERED: DEXTROSE 5% IV PRN ×2 (02:17)
[2020-06-21] MEDS ORDERED: EPINEPHRINE IV PRN ×2 (02:17)
[2020-06-21] MEDS ORDERED: PANTOPRAZOLE SODIUM 40 MG VIAL IV ONE (02:24)
[2020-06-21] MEDS ORDERED: PANTOPRAZOLE SODIUM 40 MG VIAL IV PRN (02:25)
[2020-06-21] MEDS ORDERED: MIDAZOLAM 2 MG/2 ML INJ IV ONE (02:30)
[2020-06-21] MEDS ORDERED: EPINEPHRINE INJ 1 MG/10 ML DISP.SYRIN ONE ×4 (02:56→12:25)
[2020-06-21] MEDS ORDERED: PHENYLEPHRINE HCL INJ/PF 10 MG/1 ML SDV ONE ×3 (03:00→03:14)
[2020-06-21] MEDS ORDERED: ATROPINE SULFATE INJ 1 MG/10 ML DISP.SYRIN IV ONE (03:18)
[2020-06-21] MEDS ORDERED: LINEZOLID 600 MG/300 ML RTUPB IV SCH (04:00)
[2020-06-21 04:55] VITALS: BP 83/58
--- NOTE | 2020-06-21 04:57 | CRITICAL CARE ADMISSION REPORT ---
<NAKUL HEADLEY L - Last Filed: 06/21/20 04:25> HPI Date:: 06/20/20 Time:: 22:00 Reason for ICU Reason:: s/p cardiac arrest Admission Date/Time & PCP: Admission Date/Time: 06/20/20 22:09 Primary Care Provider: HPI: Ms. Diane Lazcano is a 25-year-old female with a history of methamphetamine use per has not used in over 9 months. Presented to the ED in cardiac arrest. CORTES PICKERING was called to the emergency room parking lot to which I responded. Patient had vomited copious amounts of dark red blood in the ED parking lot. She was emergently brought into the ED trauma room 2. states that she has not been feeling well for the past few days vomiting in the mornings and had one episode of vomiting prior to arriving to the ED with dark red blood. He has not noticed any other specific symptoms. Denies any other past medical history, gave 9 months ago. Per the chart the patient was here in February 2020 for which she was diagnosed with PID sent home on Flagyl. P er patient was complaining of low pelvic pain a few days ago and found an old vaginal tampon unknown amount of time that it has been there, but he suspects over a month. The ED patient was in PEA arrest was successfully intubated, CPR was initiated received 2 A of epi 1 amp of bicarb 1 g of calcium and achieved ROSC. She was admitted to the ICU for further management. Upon arrival to the ICU blood pressure was 50s over 20s she was bradycardic with heart rate in the 40s she was started on an epinephrine drip. Her ABG revealed a pH of 6.79 PCO2 46.7 PO2 148.8 bicarb 6.9 she was given 2 A of bicarb started on bicarb drip at 150 cc an hour. BP remained 70s over 40s norepinephrine drip was started. I ordered emergent 2 units packed red blood cells to be transfused. Her skin was cold and mottled she had ecchymosis to bilateral flanks CT of the abdomen pelvis was performed there was no retroperitoneal bleed CT of the chest did reveal diffuse alveolar hemorrhage CT of the head showed a questionable small subdural hematoma. INR is 15.48 fibrinogen less than 60 d- dimer greater than 20, platelets 38. This is all consistent with DIC. She was given 4 FFP, 1 cryoprecipitate, and one 6 pack platelets. She was unable to maintain a map greater than 60 vasopressin was started. Throughout the rest of the night she was given multiple amps of bicarb. Her calcium was 4.6 albumin 1.7 corrected calcium 6.9 she was given 1 g of calcium gluconate. - Diagnosis/Plan (1) Cardiac arrest Is this a current diagnosis for this admission?: Yes Plan: Patient status post cardiac arrest CPR initiated ROSC achieved Maintain mechanical ventilation Support blood pressure with epinephrine, Levophed, vasopressin. Patient is auto cooled with a temp of 34.9 Celsius Correct acidosis EKG post cardiac arrest sinus tachycardia with first-degree AV block (2) Sepsis Qualifiers: Sepsis type: sepsis due to unspecified organism Sepsis acute organ dysfunction status: with acute organ dysfunction Severe sepsis acute organ dysfunction type: disseminated intravascular coagulopathy Severe sepsis shock status: with septic shock Qualified Code(s): A41.9 - Sepsis, unspecified organism; R65.21 - Severe sepsis with septic shock; D65 - Disseminated intravascular coagulation [defibrination syndrome] Is this a current diagnosis for this admission?: Yes Plan: Patient with DIC given sixpack platelets, 4 FFP, 2 PRBC, and 1 cryoprecipitate. Started on cefepime and linezolid Sepsis most likely secondary to toxic shock. Blood culture sent Tracheal aspirate sent for culture and Gram stain Urine culture sent Shock liver: lactic acid greater than 12 T bili 2.1 direct bili 1.4 AST 14,095 ALT 9031 Past Medical History Medical History: None Musculoskeltal Medical History: Reports: Arthritis Psychiatric Medical History: Reports: Bipolar Disorder, Depression Past Surgical History Past Surgical History: Reports: None Social/Family History - Social History Lives with: Spouse/Significant other Smoking Status: Unknown if Ever Smoked Drugs: Marijuana, Other - Methamphetamine - Medication/Allergies Home Medications: Vit/Iron Fum/Folic AC [ Tablet] 1 tab PO DAILY 02/24/17 Ibuprofen [Motrin 800 mg Tablet] 800 mg PO Q8HP PRN #60 tablet 09/26/19 Metronidazole [Flagyl 500 mg Tablet] 500 mg PO BID #14 tablet 03/09/20 Allergies/Adverse Reactions: quetiapine fumarate [From Jodange] Allergy (Intermediate, Verified 09/25/19 00:42) Nausea Penicillins Adverse Reaction (Intermediate, Verified 09/24/19 17:49) STRAWBERRIES Allergy (Mild, Uncoded 09/25/19 00:42) Rash Review of Systems ROS unobtainable: Due to endotracheal tube Physical Exam Vital Signs: Temp Pulse Resp BP Pulse Ox 95.2 F L 24 H 73/46 L 91 L 06/21/20 02:00 06/21/20 02:00 06/20/20 22:45 06/20/20 21:12 Intake & Output 06/19/20 06/20/20 06/21/20 06:59 06:59 06:59 Output Total 70 Balance -70 General appearance: PRESENT: severe distress Head exam: PRESENT: atraumatic, normocephalic Eye exam: PRESENT: other - pupils fixed Mouth exam: PRESENT: moist Respiratory exam: PRESENT: crackles, rhonchi Cardiovascular exam: PRESENT: bradycardia Vascular exam: PRESENT: pallor, other - cyanosis GI/Abdominal exam: PRESENT: diminished bowel sounds Gentrourinary exam: PRESENT: ecchymosis, indwelling catheter Laboratory/Radiographs Laboratory Results: 06/20/20 20:50 06/20/20 23:41 06/20/20 06/20/20 06/20/20 20:50 20:50 20:50 WBC RBC Hgb Hct MCV MCH MCHC RDW Plt Count Seg Neutrophils % Carbonic Acid HCO3/H2CO3 Ratio ABG pH ABG pCO2 ABG pO2 ABG HCO3 ABG O2 Saturation ABG Base Excess VBG pH VBG pCO2 VBG HCO3 VBG Base Excess FiO2 Sodium Potassium Chloride Carbon Dioxide Anion Gap BUN Creatinine Est GFR ( Amer) Est GFR (Non-Af Amer) Glucose Lactic Acid Calcium Phosphorus Cancelled Magnesium Cancelled Total Bilirubin AST Alkaline Phosphatase Total Protein Albumin Lipase Cancelled Serum HCG, Qual NEGATIVE Urine Color ZAK Urine Appearance CLOUDY Urine pH 5.0 Ur Specific [place] 1.019 Urine Protein 100 H Urine Glucose (UA) NEGATIVE Urine Ketones NEGATIVE Urine Blood MODERATE H Urine RBC (Auto) 1 Blood Type Antibody Screen 06/20/20 06/20/20 06/20/20 20:50 20:50 21:52 WBC 12.7 H RBC 4.29 Hgb 12.0 Hct 38.9 MCV 91 MCH 28.0 MCHC 30.8 L RDW 17.8 H Plt Count 34 L Seg Neutrophils % Not Reportable Carbonic Acid HCO3/H2CO3 Ratio ABG pH ABG pCO2 ABG pO2 ABG HCO3 ABG O2 Saturation ABG Base Excess VBG pH VBG pCO2 VBG HCO3 VBG Base Excess FiO2 Sodium Cancelled Potassium Cancelled Chloride Cancelled Carbon Dioxide Cancelled Anion Gap Cancelled BUN Cancelled Creatinine Cancelled Est GFR ( Amer) Cancelled Est GFR (Non-Af Amer) Cancelled Glucose Cancelled Lactic Acid Calcium Cancelled Phosphorus Magnesium Total Bilirubin Cancelled AST Cancelled Alkaline Phosphatase Cancelled Total Protein Cancelled Albumin Cancelled Lipase Serum HCG, Qual Urine Color Urine Appearance Urine pH Ur Specific [place] Urine Protein Urine Glucose (UA) Urine Ketones Urine Blood Urine RBC (Auto) Blood Type O POSITIVE Antibody Screen NEGATIVE 06/20/20 06/20/20 06/20/20 23:09 23:15 23:41 WBC RBC Hgb Hct MCV MCH MCHC RDW Plt Count Seg Neutrophils % Carbonic Acid 1.41 H HCO3/H2CO3 Ratio 4:1 ABG pH 6.79 L* ABG pCO2 46.7 H ABG pO2 148.8 H ABG HCO3 6.9 L ABG O2 Saturation 96.1 ABG Base Excess -27.4 VBG pH VBG pCO2 VBG HCO3 VBG Base Excess FiO2 100% Sodium 134.6 L Potassium 5.1 H Chloride 102 Carbon Dioxide 11 L Anion Gap 22 H BUN 24 H Creatinine 2.35 H Est GFR ( Amer) 30 L Est GFR (Non-Af Amer) Glucose 223 H Lactic Acid > 12.0 H Calcium 4.6 L* Phosphorus Magnesium Total Bilirubin 2.1 H AST 09824 H Alkaline Phosphatase 76 Total Protein 3.3 L Albumin 1.7 L Lipase Serum HCG, Qual Urine Color Urine Appearance Urine pH Ur Specific [place] Urine Protein Urine Glucose (UA) Urine Ketones Urine Blood Urine RBC (Auto) Blood Type Antibody Screen 06/20/20 06/21/20 06/21/20 23:41 00:53 00:53 WBC RBC Hgb Hct MCV MCH MCHC RDW Plt Count Seg Neutrophils % Carbonic Acid 1.90 H HCO3/H2CO3 Ratio 5:1 ABG pH 6.86 L* ABG pCO2 63.2 H ABG pO2 61.4 L ABG HCO3 11.0 L ABG O2 Saturation 69.1 L ABG Base Excess -22.1 VBG pH 6.85 L* VBG pCO2 70.6 H* VBG HCO3 12.0 L VBG Base Excess -21.4 FiO2 100% Sodium Potassium Chloride Carbon Dioxide Anion Gap BUN Creatinine Est GFR ( Amer) Est GFR (Non-Af Amer) Glucose Lactic Acid Calcium Phosphorus 15.5 H Magnesium 3.5 H Total Bilirubin AST Alkaline Phosphatase Total Protein Albumin Lipase 277.4 Serum HCG, Qual Urine Color Urine Appearance Urine pH Ur Specific [place] Urine Protein Urine Glucose (UA) Urine Ketones Urine Blood Urine RBC (Auto) Blood Type Antibody Screen 06/20/20 20:50 CK-MB (CK-2) 10.90 H Troponin I 0.060 NT-Pro-B Natriuret Pep 966 H Impressions: Abdomen/Pelvis CT 06/20/20 00:00 IMPRESSION: 1. Innumerable foci of confluent and patchy groundglass and solid airspace opacification throughout the bilateral lungs with differential and details as above. 2. Small volume of air within the dependent RIGHT ventricle. 3. Diffuse hepatic steatosis. 4. Air and fluid distended stomach may be secondary to recent intubation. 5. Dilated loops of proximal small bowel with differential and details as above. 6. Diffuse stranding and possible fluid collection level of the vascular insertion of the LEFT femoral catheter. NEW PATIENT ESCORT Abner was notified by telephone of the critical findings on 06/20/2020 at 2345 hours. Chest X-Ray 06/20/20 21:21 IMPRESSION: Bilateral pneumonia. Large amount of air in the stomach. copyright 2010 [employer]- All Rights Reserved Head CT 06/20/20 21:22 IMPRESSION: 1. Small volume of extra-axial increased density is identified at the level of the RIGHT frontal high convexity, raising the possibility of trace subdural hematoma, versus cortical vein or thrombosed vein for which follow-up evaluation CT or MRI venogram may be considered. Evaluation through this location is limited secondary to severe streak artifact. 2. Diffuse paucity of the cerebral sulci, finding which may be within normal limits for the patient's however the possibility of early cerebral edema cannot be completely excluded. 3. CT is insensitive in the detection of early acute infarction. If there is clinical concern for acute ischemia, MRI is recommended. All labs, radiographs, diagnostic studies and EKGs were personally reviewed: Yes In addition, reports of radiographic and diagnostic studies were read: Yes Critical Time Critical Time (minutes): 120 -: The care of a critically ill patient is dynamic. This note represents a static moment in the admission process. Orders and treatments may be given simultaneously and urgently, and time is not sales representative womens health of the treatment process. This patient requires Critical Care secondary to life threatening organ or limb dysfunction. Without Critical Care services, the patient is at risk for increased mortality and morbidity. <ARNIEHEATHER J - Last Filed: 06/21/20 07:49> HPI Admission Date/Time & PCP: Admission Date/Time: 06/20/20 22:09 Primary Care Provider: Plan Summary: I was available but was not called in . Agree with NEW PATIENT ESCORT Billie and her findings. Exemplary care of this patient. Suspect DIC from Toxic shock given the notification from family of retained tampon and previous PID. Another possibility is methamphetamine laced substance. Unfortunately, the patient and in review, her condition was terminal on presentation. Have notified lease examiner and have asked them to review the case. Physical Exam Vital Signs: Temp Pulse Resp BP Pulse Ox 95.2 F L 113 H 24 H 73/46 L 100 06/21/20 02:00 06/20/20 22:16 06/21/20 02:00 06/20/20 22:45 06/20/20 22:16 Intake & Output 06/20/20 06/21/20 06/22/20 06:59 06:59 06:59 Output Total 70 Balance -70 Weight 69 kg Weight/Height Weight 69 kg Height 5 ft 5 in Laboratory/Radiographs Laboratory Results: 06/20/20 20:50 06/20/20 23:41 06/20/20 06/20/20 06/20/20 20:50 20:50 20:50 WBC RBC Hgb Hct MCV MCH MCHC RDW Plt Count Seg Neutrophils % Carbonic Acid HCO3/H2CO3 Ratio ABG pH ABG pCO2 ABG pO2 ABG HCO3 ABG O2 Saturation ABG Base Excess VBG pH VBG pCO2 VBG HCO3 VBG Base Excess FiO2 Sodium Potassium Chloride Carbon Dioxide Anion Gap BUN Creatinine Est GFR ( Amer) Est GFR (Non-Af Amer) Glucose Lactic Acid Calcium Phosphorus Cancelled Magnesium Cancelled Total Bilirubin AST Alkaline Phosphatase Total Protein Albumin Lipase Cancelled Serum HCG, Qual NEGATIVE Urine Color ZAK Urine Appearance CLOUDY Urine pH 5.0 Ur Specific [place] 1.019 Urine Protein 100 H Urine Glucose (UA) NEGATIVE Urine Ketones NEGATIVE Urine Blood MODERATE H Urine RBC (Auto) 1 Blood Type Antibody Screen 06/20/20 06/20/20 06/20/20 20:50 20:50 21:52 WBC 12.7 H RBC 4.29 Hgb 12.0 Hct 38.9 MCV 91 MCH 28.0 MCHC 30.8 L RDW 17.8 H Plt Count 34 L Seg Neutrophils % Not Reportable Carbonic Acid HCO3/H2CO3 Ratio ABG pH ABG pCO2 ABG pO2 ABG HCO3 ABG O2 Saturation ABG Base Excess VBG pH VBG pCO2 VBG HCO3 VBG Base Excess FiO2 Sodium Cancelled Potassium Cancelled Chloride Cancelled Carbon Dioxide Cancelled Anion Gap Cancelled BUN Cancelled Creatinine Cancelled Est GFR ( Amer) Cancelled Est GFR (Non-Af Amer) Cancelled Glucose Cancelled Lactic Acid Calcium Cancelled Phosphorus Magnesium Total Bilirubin Cancelled AST Cancelled Alkaline Phosphatase Cancelled Total Protein Cancelled Albumin Cancelled Lipase Serum HCG, Qual Urine Color Urine Appearance Urine pH Ur Specific [place] Urine Protein Urine Glucose (UA) Urine Ketones Urine Blood Urine RBC (Auto) Blood Type O POSITIVE Antibody Screen NEGATIVE 06/20/20 06/20/20 06/20/20 23:09 23:15 23:41 WBC RBC Hgb Hct MCV MCH MCHC RDW Plt Count Seg Neutrophils % Carbonic Acid 1.41 H HCO3/H2CO3 Ratio 4:1 ABG pH 6.79 L* ABG pCO2 46.7 H ABG pO2 148.8 H ABG HCO3 6.9 L ABG O2 Saturation 96.1 ABG Base Excess -27.4 VBG pH VBG pCO2 VBG HCO3 VBG Base Excess FiO2 100% Sodium 134.6 L Potassium 5.1 H Chloride 102 Carbon Dioxide 11 L Anion Gap 22 H BUN 24 H Creatinine 2.35 H Est GFR ( Amer) 30 L Est GFR (Non-Af Amer) Glucose 223 H Lactic Acid > 12.0 H Calcium 4.6 L* Phosphorus Magnesium Total Bilirubin 2.1 [place] 88646 H Alkaline Phosphatase 76 Total Protein 3.3 L Albumin 1.7 L Lipase Serum HCG, Qual Urine Color Urine Appearance Urine pH Ur Specific [place] Urine Protein Urine Glucose (UA) Urine Ketones Urine Blood Urine RBC (Auto) Blood Type Antibody Screen 06/20/20 06/21/20 06/21/20 23:41 00:53 00:53 WBC RBC Hgb Hct MCV MCH MCHC RDW Plt Count Seg Neutrophils % Carbonic Acid 1.90 H HCO3/H2CO3 Ratio 5:1 ABG pH 6.86 L* ABG pCO2 63.2 H ABG pO2 61.4 L ABG HCO3 11.0 L ABG O2 Saturation 69.1 L ABG Base Excess -22.1 VBG pH 6.85 L* VBG pCO2 70.6 H* VBG HCO3 12.0 L VBG Base Excess -21.4 FiO2 100% Sodium Potassium Chloride Carbon Dioxide Anion Gap BUN Creatinine Est GFR ( Amer) Est GFR (Non-Af Amer) Glucose Lactic Acid Calcium Phosphorus 15.5 H Magnesium 3.5 H Total Bilirubin AST Alkaline Phosphatase Total Protein Albumin Lipase 277.4 Serum HCG, Qual Urine Color Urine Appearance Urine pH Ur Specific [place] Urine Protein Urine Glucose (UA) Urine Ketones Urine Blood Urine RBC (Auto) Blood Type Antibody Screen 06/20/20 20:50 CK-MB (CK-2) 10.90 H Troponin I 0.060 NT-Pro-B Natriuret Pep 966 H Impressions: Abdomen/Pelvis CT 06/20/20 00:00 IMPRESSION: 1. Innumerable foci of confluent and patchy groundglass and solid airspace opacification throughout the bilateral lungs with differential and details as above. 2. Small volume of air within the dependent RIGHT ventricle. 3. Diffuse hepatic steatosis. 4. Air and fluid distended stomach may be secondary to recent intubation. 5. Dilated loops of proximal small bowel with differential and details as above. 6. Diffuse stranding and possible fluid collection level of the vascular insertion of the LEFT femoral catheter. FILIPE Levine was notified by telephone of the critical findings on 06/20/2020 at 2345 hours. Chest X-Ray 06/20/20 21:21 IMPRESSION: Bilateral pneumonia. Large amount of air in the stomach. copyright 2010 [employer]- All Rights Reserved Head CT 06/20/20 21:22 IMPRESSION: 1. Small volume of extra-axial increased density is identified at the level of the RIGHT frontal high convexity, raising the possibility of trace subdural hematoma, versus cortical vein or thrombosed vein for which follow-up evaluation CT or MRI venogram may be considered. Evaluation through this location is limited secondary to severe streak artifact. 2. Diffuse paucity of the cerebral sulci, finding which may be within normal limits for the patient's however the possibility of early cerebral edema cannot be completely excluded. 3. CT is insensitive in the detection of early acute infarction. If there is clinical concern for acute ischemia, MRI is recommended. Critical Time -: The care of a critically ill patient is dynamic. This note represents a static moment in the admission process. Orders and treatments may be given simultaneously and urgently, and time is not sales representative womens health of the treatment process. This patient requires Critical Care secondary to life threatening organ or limb dysfunction. Without Critical Care services, the patient is at risk for increased mortality and morbidity.
--- NOTE | 2020-06-21 05:04 | Death Summary ---
Summary Date : 06/21/20 Time of :: 03:43 Autopsy: No Resuscitation Status: Full Code - Final Diagnosis (1) Cardiac arrest Is this a current diagnosis for this admission?: Yes (2) Sepsis Is this a current diagnosis for this admission?: Yes Hospital Course:: Ms. Diane Lazcano is a 25-year-old female with a history of methamphetamine use per has not used in over 9 months. Presented to the ED in cardiac arrest. CORTES PICKERING was called to the emergency room parking lot to which I responded. Patient had vomited copious amounts of dark red blood in the ED parking lot. She was emergently brought into the ED trauma room 2. states that she has not been feeling well for the past few days vomiting in the mornings and had one episode of vomiting prior to arriving to the ED with dark red blood. He has not noticed any other specific symptoms. Denies any other past medical history, gave 9 months ago. Per the chart the patient was here in February 2020 for which she was diagnosed with PID sent home on Flagyl. Per patient was complaining of low pelvic pain a few days ago and found an old vaginal tampon unknown amount of time that it has been there, but he suspects over a month. The ED patient was in PEA arrest was successfully intubated, CPR was initiated received 2 A of epi 1 amp of bicarb 1 g of calcium and achieved ROSC. She was admitted to the ICU for further management. Upon arrival to the ICU blood pressure was 50s over 20s she was bradycardic with heart rate in the 40s she was started on an epinephrine drip. Her ABG revealed a pH of 6.79 PCO2 46.7 PO2 148.8 bicarb 6.9 she was given 2 A of bicarb started on bicarb drip at 150 cc an hour. BP remained 70s over 40s norepinephrine drip was started. I ordered emergent 2 units packed red blood cells to be transfused. Her skin was cold and mottled she had ecchymosis to bilateral flanks CT of the abdomen pelvis was performed there was no retroperitoneal bleed CT of the chest did reveal diffuse alveolar hemorrhage CT of the head showed a questionable small subdural hematoma. INR is 15.48 fibrinogen less than 60 d- dimer greater than 20, platelets 38. This is all consistent with DIC. She was given 4 FFP, 1 cryoprecipitate, and one 6 pack platelets. She was unable to maintain a map greater than 60 vasopressin was started. Throughout the rest of the night she was given multiple amps of bicarb. Her calcium was 4.6 albumin 1.7 corrected calcium 6.9 she was given 1 g of calcium gluconate. Throughout the night and into the morning patient required multiple pushes of epinephrine and bicarb. We were unable to maintain an adequate blood pressure and heart rate. At 031 patient again went into PEA arrest CPR was initiated multiple rounds of epinephrine and bicarb were given. She then went to V. fib and was defibrillated. We were unable to achieve ROSC and patient at 034.
[2020-06-21] MEDS ORDERED: NORMAL SALINE INJ/PF 0.9% 10 ML SDV IV PRN (06:48)
[2020-06-21] MEDS: DEXTROSE 5%-WATER 250 ML with NOREPINEPHRINE BITARTRATE 4 MG IV PRN ×2 (08:28)
--- NOTE | 2020-06-21 08:41 | EKG REPORT ---
SEVERITY:- ABNORMAL ECG - SINUS TACHYCARDIA FIRST DEGREE AV BLOCK : Confirmed by: Meera Hall MD 21-Jun-2020 08:40:32
[2020-06-21] MEDS ORDERED: NORMAL SALINE 100 ML with PANTOPRAZOLE SODIUM 80 MG IV PRN ×2 (08:58)
[2020-06-21] MEDS ORDERED: AMIODARONE HCL INJ 150 MG/3 ML VIAL IV ONE (09:42)
[2020-06-21] MEDS ORDERED: CEFEPIME 2 GM/D5W RTU 2 GM/50 ML RTUPB IV SCH (10:00)
[2020-06-21] MEDS ORDERED: CEFEPIME HCL 2 GM in DEXTROSE 5%-WATER 50 ML IV SCH (10:00)
== END 2020-06-21 08:15 | disposition left against medical advice (07) | DRG 867 ==
LOC: ER 20:58 → EH 22:09 → ICU 22:10
PROVIDERS: ADMIT Internal Medicine Critical Care Medicine; ATTEND Internal Medicine Critical Care Medicine
PROC: 0BH17EZ Insertion of Endotracheal Airway into Trachea, Via Natural or Artificial Opening (ICD-10-PCS; principal; 2020-06-20)
PROC: 5A1935Z Respiratory Ventilation, Less than 24 Consecutive Hours (ICD-10-PCS; 2020-06-20)
PROC: 30233N1 Transfusion of Nonautologous Red Blood Cells into Peripheral Vein, Percutaneous Approach (ICD-10-PCS; 2020-06-20)
PROC: 30233K1 Transfusion of Nonautologous Frozen Plasma into Peripheral Vein, Percutaneous Approach (ICD-10-PCS; 2020-06-21)
PROC: 30233R1 Transfusion of Nonautologous Platelets into Peripheral Vein, Percutaneous Approach (ICD-10-PCS; 2020-06-21)
PROC: 30233M1 Transfusion of Nonautologous Plasma Cryoprecipitate into Peripheral Vein, Percutaneous Approach (ICD-10-PCS; 2020-06-21)
DX: A48.3 Toxic shock syndrome (principal); S06.5X9A Traumatic subdural hemorrhage with loss of consciousness of unspecified duration, initial encounter; D65 Disseminated intravascular coagulation [defibrination syndrome]; M31.4 Aortic arch syndrome [Takayasu]; I46.9 Cardiac arrest, cause unspecified; X58.XXXA Exposure to other specified factors, initial encounter; Y93.9 Activity, unspecified; Y92.9 Unspecified place or not applicable
CPT/HCPCS: 36415; 36430; 70450; 71045; 74176; 80053; 80307; 81001; 82553; 82803; 82962; 83605; 83690; 83735; 83880; 84100; 84484; 84703; 85025; 85379; 85384; 85610; 85730; 86850; 86900; 86901; 86920; 87040; 87070; 87086; 87150; 87205; 92950; 93005; 93010; 94002; 94003; 99291; 99292; C9113; J0171; J0282; J0610; J2250; J3490; J7060; P9016; P9017; P9035